=== PATIENT | female | born 1965 | race Caucasian/White ===

== ENCOUNTER 2016-05-01 10:08 | Inpatient (IN) | payer OTHER ==
[2016-05-01 10:22] VITALS: BMI 37.4
--- NOTE | 2016-05-01 10:26 | PDOC ---
History of Present Illness - General History Source: Patient Exam Limitations: No Limitations - History of Present Illness Initial Comments: 05/01/16 10:47 Chief complaint: Hypertension Patient 50-year-old female with a history of hypertension and 2 CVAs with residual speech issue who states that she went for a stress test today because she's been having chest pain, shortness of breath and dizziness on and off. She said this chest pain was worse last night. She went for the stress test today and while they were doing the pictures, she became dizzy and got tightness to her chest.. No shortness of breath today. Patient was found to be hypertensive, given lisinipril 30 mg by mouth there and was sent to the ER for further evaluation. No headache, nausea or vomiting GENERAL: The patient is awake, alert, and fully oriented, in no acute distress. HEAD: Normal with no signs of trauma. EYES: Pupils equal, round and reactive to light, sclera anicteric, conjunctiva clear. ENT: pharynx: no erythema, no exudate, uvula midline NECK: supple CHEST: clear, nontender, rr ABD: soft, nontender EXTREMITIES: Normal range of motion, no edema. NEUROLOGICAL: Normal speech, normal gait. SKIN: Warm, Dry <Radha Dexter - Last Filed: 05/01/16 14:57> <Jose Gurrola - Last Filed: 05/06/16 09:27> - General Chief Complaint: Blood Pressure Problem Stated Complaint: Blood Pressure Problem Time Seen by Provider: 05/01/16 10:19 Past History - Past Medical History HTN: Yes Hypercholesterolemia: Yes Other medical history: CHRONIC BACK PAIN. - Psycho/Social/Smoking Cessation Hx Anxiety: No Suicidal Ideation: No Smoking History: Never smoked Hx Alcohol Use: No Drug/Substance Use Hx: No Substance Use Type: None <Radha Dexter - Last Filed: 05/01/16 14:57> <Jose Gurrola - Last Filed: 05/06/16 09:27> - Past Medical History Allergies/Adverse Reactions: Allergies Allergy/AdvReac Type Severity Reaction Status Date / Time No Known Allergies Allergy Verified 05/01/16 10:10 Home Medications: Ambulatory Orders Baclofen 10 mg PO BID 05/01/16 Cholecalciferol (Vitamin D3) [Vitamin D3 -] 1,000 unit PO DAILY 05/01/16 Lisinopril [Zestril] 30 mg PO DAILY 05/01/16 Meloxicam [Mobic] 15 mg PO DAILY 05/01/16 Naproxen [Naprosyn -] 500 mg PO BID 05/01/16 Simvastatin 40 mg PO DAILY 05/01/16 *Physical Exam - Vital Signs Last Vital Signs Temp Pulse Resp BP Pulse Ox 97.4 F L 73 18 168/132 98 05/01/16 10:12 05/01/16 10:12 05/01/16 10:12 05/01/16 10:21 05/01/16 10:12 <Radha Dexter - Last Filed: 05/01/16 14:57> - Vital Signs Last Vital Signs Temp Pulse Resp BP Pulse Ox 97 F L 68 20 145/83 97 05/06/16 04:41 05/06/16 05:42 05/06/16 08:21 05/06/16 05:42 05/06/16 08:21 <Jose Gurrola - Last Filed: 05/06/16 09:27> Heart Score/ECG Review - History History: Moderately suspicious - Age Age: 45-65 - Risk Factors Risk Factors Heart Score: Yes Hx Hypertension, Yes Hx Obesity - ECG Intrepretation Rhythm: Regular Rhythm Comment:: Normal sinus rhythm at 74 Left ventricular hypertrophy, T-wave abnormalities 05/01/16 11:00 No old EKG available <Radha Dexter - Last Filed: 05/01/16 14:57> ED Treatment Course - LABORATORY CBC & Chemistry Diagram: 05/01/16 11:15 05/01/16 11:15 <Radha Dexter - Last Filed: 05/01/16 14:57> - LABORATORY CBC & Chemistry Diagram: 05/06/16 05:35 05/06/16 05:35 - ADDITIONAL ORDERS Additional order review: 05/01/16 11:15 RBC 5.26 H MCV 77.7 L MCHC 31.7 L RDW 15.0 MPV 7.6 Neutrophils % 52.8 Lymphocytes % 34.9 Monocytes % 8.2 Eosinophils % 2.8 Basophils % 1.3 - Medications Given in the ED: ED Medications Discontinued Medications Generic Name Dose Route Start Last Admin Trade Name Priyank PRN Reason Stop Dose Admin Acetaminophen 650 mg 05/01/16 11:51 05/01/16 14:05 Tylenol - PO 650 mg Q6H PRN Administration FEVER OR PAIN Acetaminophen 650 mg 05/02/16 00:45 05/02/16 00:57 Tylenol - PO 05/02/16 00:46 650 mg ONCE ONE Administration Acetaminophen/Butalbital/Caffeine 1 tablet 05/02/16 20:32 05/05/16 22:12 Fioricet - PO 1 tablet Q6H PRN Administration HEADACHE Aspirin 162 mg 05/01/16 12:14 05/01/16 12:28 Asa - PO 05/01/16 12:15 162 mg ONCE ONE Administration Aspirin 81 mg 05/02/16 10:00 05/05/16 09:38 Asa - PO 81 mg DAILY MODE Administration Atorvastatin Calcium 20 mg 05/02/16 10:00 05/05/16 09:39 Lipitor - PO 20 mg DAILY MODE Administration Baclofen 10 mg 05/01/16 22:00 05/05/16 22:09 Lioresal - PO 10 mg BID MODE Administration Carvedilol 6.25 mg 05/01/16 15:30 05/03/16 21:51 Coreg - PO 6.25 mg BID MODE Administration Carvedilol 6.25 mg 05/03/16 06:08 05/03/16 07:03 Coreg - PO 05/03/16 06:09 Not Given ONCE ONE Carvedilol 12.5 mg 05/04/16 09:38 05/05/16 09:39 Coreg - PO 12.5 mg BID MODE Administration Carvedilol 25 mg 05/05/16 22:00 05/05/16 22:09 Coreg - PO 25 mg BID MODE Administration Cephalexin HCl 500 mg 05/02/16 18:00 05/04/16 11:53 Keflex - PO 500 mg Q6HPO MODE Administration Cholecalciferol 1,000 unit 05/02/16 10:00 05/04/16 09:44 Vitamin D3 - PO 1,000 unit DAILY MODE Administration Cholecalciferol 1,000 unit 05/05/16 10:00 05/05/16 09:39 Vitamin D3 - PO 1,000 unit DAILY MODE Administration Ezetimibe 10 mg 05/04/16 10:00 05/05/16 09:39 Zetia - PO 10 mg DAILY MODE Administration Enoxaparin Sodium 40 mg 05/02/16 10:00 05/04/16 09:42 Lovenox - SQ 40 mg DAILY MODE Administration Furosemide 20 mg 05/01/16 13:16 05/01/16 14:06 Lasix Injection - IVPUSH 05/01/16 13:17 20 mg ONCE ONE Administration Furosemide 40 mg 05/02/16 08:00 05/02/16 08:42 Lasix Injection - IVPB 05/02/16 08:01 40 mg ONCE ONE Administration Heparin Sodium (Porcine) 5,000 unit 05/05/16 10:00 05/05/16 22:09 Heparin - SQ 5,000 unit BID MODE Administration Hydralazine HCl 10 mg 05/01/16 14:15 05/01/16 14:20 Apresoline Injection - IVPUSH 05/01/16 14:16 10 mg ONCE ONE Administration Hydrochlorothiazide 25 mg 05/01/16 14:00 05/01/16 14:20 Hctz - PO 25 mg DAILY MODE Administration Hydrochlorothiazide 25 mg 05/02/16 10:00 05/04/16 09:42 Hctz - PO 25 mg DAILY MODE Administration Sodium Chloride 500 mls @ 500 mls/hr 05/05/16 08:45 05/05/16 09:37 Normal Saline - IV 05/05/16 09:44 500 mls/hr ASDIR STA Administration Oxycodone HCl 10 mg 05/02/16 00:45 05/02/16 00:56 Roxicodone - PO 05/02/16 00:46 10 mg ONCE ONE Administration Oxycodone HCl 5 mg 05/03/16 14:17 05/03/16 17:22 Roxicodone - PO 05/03/16 14:18 Not Given ONCE ONE Oxycodone/Acetaminophen 2 combo 05/02/16 00:30 05/02/16 01:58 Percocet 5/325 - PO 05/02/16 00:31 Not Given ONCE ONE Polyethylene Glycol 17 gm 05/04/16 17:36 05/04/16 18:52 Miralax (For Daily Use) - PO 05/04/16 17:37 17 gm ONCE ONE Administration Spironolactone 25 mg 05/01/16 15:30 05/05/16 09:38 Aldactone - PO Not Given DAILY MODE Spironolactone 50 mg 05/05/16 09:48 05/05/16 09:57 Aldactone - PO 50 mg DAILY MODE Administration Valsartan 160 mg 05/02/16 10:00 05/05/16 09:39 Diovan - PO 160 mg DAILY MODE Administration <Jose Gurrola - Last Filed: 05/06/16 09:27> Medical Decision Making - Medical Decision Making 11:30 Discussed with Erik Ordonez NP, hospitalist. labs sent, pending, she will follow. no chest pain now, bp improved <Radha Dextre - Last Filed: 05/01/16 14:57> - Medical Decision Making 05/06/16 09:27 The patient was seen and evaluated in conjunction with ALEJANDRA Dexter under my direct supervision, ancillary studies were reviewed. I agree with the plan as outlined by ALEJANDRA Dexter . <Jose Gurrola - Last Filed: 05/06/16 09:27> *DC/Admit/Observation/Transfer - Discharge Dispostion Admit: Yes <Radha Dexter - Last Filed: 05/01/16 14:57> <Jose Gurrola - Last Filed: 05/06/16 09:27> Diagnosis at time of Disposition: Hypertensive urgency Chest pain Qualifiers: Chest pain type: unspecified Qualified Code(s): R07.9 - Chest pain, unspecified - Discharge Dispostion Disposition: TRANSFER ACUTE CARE/OTHER HOSP Condition at time of disposition: Stable
[2016-05-01 11:35] LABS: BASOPHIL 1.3 % (0-2.0); EOSINOPHIL 2.8 % (0-4.5); MCH 24.6 pg (25.7-33.7); MCHC 31.7 g/dl (32.0-36.0); MEAN CELL VOLUME 77.7 fl (80-96); MEAN PLT VOLUME 7.6 fl (7.5-11.1); NEUTROPHILS 52.8 % (42.8-82.8); PLATELET COUNT 226 K/MM3 (134-434); WHITE BLOOD COUNT 6.3 K/mm3 (4.0-10.0)
--- NOTE | 2016-05-01 11:49 | HP ---
CHIEF COMPLAINT: PCP: Dr. Heard [employer]: HISTORY OF PRESENT ILLNESS: This is a 50 year old female with a history of HTN, HLD, CVA x 2 with mild residual dysarthria and mild left-sided weakness, and chronic low back pain who presented today as an outpatient for a stress test. During the exam, she became dizzy and developed chest tightness and shortness of breath. She was found to be hypertensive to 200/130 and was given Lisinopril 30mg po. She was transferred to the ED for further evaluation. ER course was notable for: (1) EKG: NSR at 74bpm with TWI in lateral leads; no prior available for comparison (2) CXR: Cardiomegaly (new when compared to prior study in 2007), no acute process (3) BP reduced to 162/77 with administration of Lisinopril alone (4) TNI 0.23 (50 BNP 1779 Recent Travel: None Social History: Lives with daughter, on disability s/p CVA Smoking: Never smoker Alcohol: None Drugs: None Family History: No known family history of CAD/early Allergies No Known Allergies Allergy (Verified 05/01/16 10:10) HOME MEDICATIONS: Home Medications Medication Instructions Recorded Baclofen 10 mg PO BID 05/01/16 Cholecalciferol (Vitamin D3) 1,000 unit PO DAILY 05/01/16 [Vitamin D3 -] Lisinopril [Zestril] 30 mg PO DAILY 05/01/16 Meloxicam [Mobic] 15 mg PO DAILY 05/01/16 Naproxen [Naprosyn -] 500 mg PO BID 05/01/16 Simvastatin 40 mg PO DAILY 05/01/16 REVIEW OF SYSTEMS CONSTITUTIONAL: Absent: fever, chills, diaphoresis, generalized weakness, malaise, loss of appetite, weight change HEENT: Absent: rhinorrhea, nasal congestion, throat pain, throat swelling, difficulty swallowing, mouth swelling, ear pain, eye pain, visual changes CARDIOVASCULAR: Chest pain/pressure, lightheadedness, + PND, 2 pillow orthopnea. Absent: lower extremity edema RESPIRATORY: Shortness of breath. Absent: cough, dyspnea with exertion, orthopnea, wheezing, stridor, hemoptysis GASTROINTESTINAL: Absent: abdominal pain, abdominal distension, nausea, vomiting, diarrhea, constipation, melena, hematochezia GENITOURINARY: Absent: dysuria, frequency, urgency, hesitancy, hematuria, flank pain, genital pain MUSCULOSKELETAL: Absent: myalgia, arthralgia, joint swelling, back pain, neck pain SKIN: Absent: rash, itching, pallor HEMATOLOGIC/IMMUNOLOGIC: Absent: easy bleeding, easy bruising, lymphadenopathy, frequent infections ENDOCRINE: Absent: unexplained weight gain, unexplained weight loss, heat intolerance, cold intolerance NEUROLOGIC: Absent: headache, focal weakness or paresthesias, dizziness, unsteady gait, seizure, mental status changes, bladder or bowel incontinence PSYCHIATRIC: Absent: anxiety, depression, suicidal or homicidal ideation, hallucinations. PHYSICAL EXAMINATION Vital Signs - 24 hr 05/01/16 05/01/16 05/01/16 10:12 10:21 10:33 Temperature 97.4 F L Pulse Rate 73 73 Pulse Rate [ Apical] Respiratory 18 Rate Blood Pressure 182/109 Blood Pressure 168/132 [Left Arm] Blood Pressure [Right Arm] O2 Sat by Pulse 98 98 Oximetry (%) 05/01/16 11:22 Temperature Pulse Rate Pulse Rate [ 70 Apical] Respiratory 18 Rate Blood Pressure Blood Pressure 162/77 [Left Arm] Blood Pressure 164/96 [Right Arm] O2 Sat by Pulse 98 Oximetry (%) GENERAL: Awake, alert, and fully oriented, in no acute distress. EYES: Pupils equal, round and reactive to light, extraocular movements intact, sclera anicteric, conjunctiva clear. No lid lag. EARS, NOSE, THROAT: Ears normal, nares patent, oropharynx clear without exudates. Moist mucous membranes. NECK: Normal range of motion, supple without lymphadenopathy, JVD, or masses. LUNGS: Breath sounds equal, clear to auscultation bilaterally. No wheezes, and no crackles. No accessory muscle use. HEART: Regular rate and rhythm, normal S1 and S2 without murmur, rub or gallop. ABDOMEN: Soft, obese, not distended, normoactive bowel sounds, no guarding, no rebound, no masses. No hepatomegaly or splenomegaly. MUSCULOSKELETAL: Normal range of motion at all joints. No bony deformities or tenderness. No CVA tenderness. UPPER EXTREMITIES: 2+ pulses, warm, well-perfused. No cyanosis. No clubbing. Cap refill <2 seconds. No peripheral edema. LOWER EXTREMITIES: 2+ pulses, warm, well-perfused. No calf tenderness. No peripheral edema. NEUROLOGICAL: Cranial nerves II-XII intact. Normal speech. Normal gait. PSYCHIATRIC: Cooperative. Good eye contact. Appropriate mood and affect. SKIN: Warm, dry, normal turgor, no rashes or lesions noted. Laboratory Results - last 24 hr 05/01/16 11:15 WBC 6.3 RBC 5.26 H Hgb 12.9 Hct 40.8 MCV 77.7 L MCHC 31.7 L RDW 15.0 Plt Count 226 MPV 7.6 Neutrophils % 52.8 Lymphocytes % 34.9 Monocytes % 8.2 Eosinophils % 2.8 Basophils % 1.3 ASSESSMENT/PLAN: 50 year old female with chest pain, elevated troponin, and severe HTN consistent with hypertensive emergency. Problem List - Problem (1) Chest pain Assessment/Plan: -Monitor on telemetry -Serial troponins to TOY -ASA 162mg now and 81mg daily -Echocardiogram given PND/orthopnea and elevated BNP -Lasix 20mg IVP x 1 -Cardiology consultation Code(s): R07.9 - CHEST PAIN, UNSPECIFIED Qualifiers: Chest pain type: unspecified Qualified Code(s): R07.9 - Chest pain, unspecified (2) Hypertensive emergency Assessment/Plan: -MAP has decreased from 153 to 105 (by approximately 1/3) with administration of home medications -Add HCTZ 25mg po daily -Monitor and avoid further rapid decrease for now Code(s): I10 - ESSENTIAL (PRIMARY) HYPERTENSION (3) Hyperlipidemia Assessment/Plan: -Continue Simvastatin Code(s): E78.5 - HYPERLIPIDEMIA, UNSPECIFIED (4) DVT prophylaxis Assessment/Plan: -Lovenox 40mg sq daily -Ambulation Code(s): [id number] - Visit type - Emergency Visit Emergency Visit: Yes ED Registration Date: 05/01/16 Care time: The patient presented to the Emergency Department on the above date and was hospitalized for further evaluation of their emergent condition. - New Patient This patient is new to me today: Yes Date on this admission: 05/01/16 - Critical Care Critical Care patient: No
[2016-05-01 11:51] LABS: ALBUMIN 3.6 g/dl (3.4-5.0); ALK PHOS 70 U/L (45-117); ANION GAP 9 (8-16); BILIRUBIN,TOTAL 0.2 mg/dL (0.2-1.0); CO2 28 mmol/L (21-32); CREATININE 0.9 mg/dL (0.55-1.02); GLUCOSE,RANDOM 119 mg/dL (74-106); SGOT/AST 20 U/L (15-37); SGPT/ALT 23 U/L (12-78); TOT PROT 7.2 g/dl (6.4-8.2)
[2016-05-01] MEDS ORDERED: ONDANSETRON 4 MG/2 ML VIAL IVPB PRN (11:51)
[2016-05-01] MEDS ORDERED: ACETAMINOPHEN 325 MG TABLET (FP) PO PRN (11:51)
[2016-05-01] MEDS ORDERED: ASPIRIN 81 MG CHEWABLE TABLETS PO ONE (12:14)
[2016-05-01] MEDS ORDERED: ASPIRIN 81 MG CHEWABLE TABLETS ONE (12:26)
[2016-05-01 12:28] LABS: TROPONIN I 0.23 ng/ml (0.00-0.05)
[2016-05-01] MEDS ORDERED: FUROSEMIDE 40 MG/4 ML INJECTABLE VIAL IVPUSH ONE (13:16)
[2016-05-01 13:33] LABS: TROPONIN I 0.37 ng/ml (0.00-0.05)
[2016-05-01] MEDS ORDERED: HYDROCHLOROTHIAZIDE 25 MG TABLET (FP) PO SCH (14:00)
[2016-05-01] MEDS ORDERED: hydrALAZINE HCL 20 MG/ML VIAL ONE (14:03)
[2016-05-01] MEDS ORDERED: hydrALAZINE HCL 20 MG/ML VIAL IVPUSH ONE (14:15)
--- NOTE | 2016-05-01 14:34 | CON.CARD ---
Consult Consult Specialty:: Cardiology Referred by:: Hospitalist Medicine Reason for Consultation:: Chest pain, dyspnea - History of Present Illness Chief Complaint: Chest pain, dyspnea History of Present Illness: 50 year old female with a history of HTN, HLD, CVA x 2 with mild residual dysarthria and mild left-sided weakness, chronic low back and left knee pain presented today as an outpatient for a stress test. During the exam, she became dizzy and developed chest tightness and shortness of breath. She was found to be hypertensive to 200/130 and was given Lisinopril 30mg po and transferred to the ED for further evaluation. She reports dyspnea on exertion and orthopnea over last 2 weeks, denies true syncope, palpitations, PND or LE edema. Recent Travel: None Social History: Lives with daughter, on disability s/p CVA Smoking: Never smoker Alcohol: None Drugs: None Family History: No known family history of CAD/early Allergies No Known Allergies Allergy (Verified 05/01/16 10:10) PMD: [place] - History Source History Provided By: Patient Limitations to Obtaining History: No Limitations - Alcohol/Substance Use Hx Alcohol Use: No - Smoking History Smoking history: Never smoked Home Medications - Allergies Allergies/Adverse Reactions: Allergies Allergy/AdvReac Type Severity Reaction Status Date / Time No Known Allergies Allergy Verified 05/01/16 10:10 - Home Medications Home Medications: Ambulatory Orders Baclofen 10 mg PO BID 05/01/16 Cholecalciferol (Vitamin D3) [Vitamin D3 -] 1,000 unit PO DAILY 05/01/16 Lisinopril [Zestril] 30 mg PO DAILY 05/01/16 Meloxicam [Mobic] 15 mg PO DAILY 05/01/16 Naproxen [Naprosyn -] 500 mg PO BID 05/01/16 Simvastatin 40 mg PO DAILY 05/01/16 Vital Signs: Vital Signs Temperature 98.2 F 05/01/16 13:58 Pulse Rate 78 05/01/16 13:58 Respiratory Rate 14 05/01/16 13:58 Blood Pressure 190/128 05/01/16 13:58 O2 Sat by Pulse Oximetry (%) 99 05/01/16 12:28 Constitutional: Yes: No Distress, Calm Neck: Yes: Supple Respiratory: Yes: Regular, Diminished Gastrointestinal: Yes: Normal Bowel Sounds, Soft, Abdomen, Obese Cardiovascular: Yes: Regular Rate and Rhythm JVD: No Carotid Bruit: No Heart Sounds: Yes: S1, S2 Murmur: Yes: Systolic Murmur, Grade 1 Edema: Yes Edema: LLE: Trace, RLE: Trace - Other Data Labs, Other Data: Troponin, BNP 05/01/16 12:58 Troponin I 0.37 H Troponin, BNP 05/01/16 12:58 Troponin I 0.37 H NSR at 74 bpm LVH with repol abnl; no prior available for comparison Imaging - Results Chest X-ray: Report Reviewed (Cardiomegaly (new when compared to prior study in 2007), no acute process) Problem List - Problems (1) Chest pain Code(s): R07.9 - CHEST PAIN, UNSPECIFIED Qualifiers: Chest pain type: unspecified Qualified Code(s): R07.9 - Chest pain, unspecified (2) Hyperlipidemia Code(s): E78.5 - HYPERLIPIDEMIA, UNSPECIFIED Qualifiers: Hyperlipidemia type: pure hypercholesterolemia Qualified Code(s): E78.0 - Pure hypercholesterolemia (3) Hypertensive urgency Code(s): I10 - ESSENTIAL (PRIMARY) HYPERTENSION (4) Acute on chronic diastolic heart failure Code(s): I50.33 - ACUTE ON CHRONIC DIASTOLIC (CONGESTIVE) HEART FAILURE (5) Subendocardial ischemia Code(s): I24.8 - OTHER FORMS OF ACUTE ISCHEMIC HEART DISEASE (6) Hypertensive cardiomyopathy Code(s): I11.9 - HYPERTENSIVE HEART DISEASE WITHOUT HEART FAILURE I42.9 - CARDIOMYOPATHY, UNSPECIFIED Qualifiers: Heart failure presence: with heart failure Qualified Code(s): I11.0 - Hypertensive heart disease with heart failure Assessment/Plan 1. Acute on chronic diastolic failure with subendocardial ischemia in context of 2. Hypertensive urgency, NSAID use 3. Hyperlipidemia P:1. Trend troponins document peak 2. F/u echocardiogram to assess LV and valve fxn 3. IV diuresis with monitor diuretic response, renal fxn and electrolytes 4. Change lisinoprol to Diovan 160 qd, add carvedilol 6.25 qd with uptitration as tolerated, continue HCTZ 25 qd, d/c Mobic if possible 5. Stress imaging (Persantine) once euvolemic and BP controlled 6. Thank you for consultative opportunity
[2016-05-01] MEDS: CARVEDILOL 6.25 MG TABLET (FP) PO SCH ×2 (17:20→22:07)
[2016-05-01] MEDS: SPIRONOLACTONE 25 MG TABLET (FP) PO SCH (17:20)
[2016-05-01 18:34] LABS: TROPONIN I 0.44 ng/ml (0.00-0.05)
[2016-05-01] MEDS ORDERED: HYDROCHLOROTHIAZIDE 25 MG TABLET (FP) PO STA (18:48)
[2016-05-01] MEDS: BACLOFEN 10 MG TABLET (FP) PO SCH (22:07)
[2016-05-01 23:05] LABS: TROPONIN I 0.41 ng/ml (0.00-0.05)
[2016-05-02] MEDS ORDERED: OXYCODONE/APAP 5/325MG COMBO TABLET PO ONE (00:30)
[2016-05-02] MEDS ORDERED: ACETAMINOPHEN 325 MG TABLET (FP) PO ONE (00:45)
[2016-05-02] MEDS ORDERED: oxyCODONE HCL 5 MG TABLET PO ONE (00:45)
[2016-05-02 05:49] LABS: BASOPHIL 1.4 % (0-2.0); EOSINOPHIL 2.6 % (0-4.5); MCHC 32.7 g/dl (32.0-36.0); MEAN CELL VOLUME 76.5 fl (80-96); MEAN PLT VOLUME 7.1 fl (7.5-11.1); NEUTROPHILS 53.9 % (42.8-82.8); PLATELET COUNT 258 K/MM3 (134-434); WHITE BLOOD COUNT 6.3 K/mm3 (4.0-10.0)
[2016-05-02 06:11] LABS: ALBUMIN 3.7 g/dl (3.4-5.0); MAGNESIUM 2.1 mg/dL (1.8-2.4)
[2016-05-02 06:18] LABS: BILIRUBIN,TOTAL 0.3 mg/dL (0.2-1.0); CREATININE 1.1 mg/dL (0.55-1.02); THYROID STIMULATING HORMONE 1.93 uIU/ml (0.358-3.74); TOT PROT 7.5 g/dl (6.4-8.2)
--- NOTE | 2016-05-02 07:45 | PN ---
Physical Exam: SUBJECTIVE: Feels better, no chest pain overnight. No dyspnea at rest, feeling better after one dose of Lasix. OBJECTIVE: Hospital day #2 for this 50 year old female admitted 05/01 with chest pain. Troponin peaked at 0.44, now downtrending. Vital Signs Period Temp Pulse Resp BP Sys/Morse Pulse Ox Last 24 Hr 97.5 F-98.2 F 70-83 14-20 123-190/75-128 96-99 GENERAL: The patient is awake, alert, and fully oriented, in no acute distress. HEAD: Normal with no signs of trauma. EYES: PERRL, extraocular movements intact, sclera anicteric, conjunctiva clear. No ptosis. ENT: Ears normal, nares patent, oropharynx clear without exudates, moist mucous membranes. NECK: Trachea midline, full range of motion, supple. LUNGS: Breath sounds equal, clear to auscultation bilaterally, no wheezes, no crackles, no accessory muscle use. HEART: Regular rate and rhythm, S1, S2 without murmur, rub or gallop. ABDOMEN: Soft, nontender, nondistended, normoactive bowel sounds, no guarding, no rebound, no hepatosplenomegaly, no masses. EXTREMITIES: 2+ pulses, warm, well-perfused, no edema. NEUROLOGICAL: Cranial nerves II through XII grossly intact. Normal speech, gait not observed. PSYCH: Normal mood, normal affect. SKIN: Warm, dry, normal turgor, no rashes or lesions noted Laboratory Results - last 24 hr 05/01/16 05/01/16 05/01/16 12:58 16:40 22:00 WBC RBC Hgb Hct MCV MCHC RDW Plt Count MPV Neutrophils % Lymphocytes % Monocytes % Eosinophils % Basophils % Sodium Potassium Chloride Carbon Dioxide Anion Gap BUN Creatinine Creat Clearance w eGFR Random Glucose Calcium Magnesium Total Bilirubin AST ALT Alkaline Phosphatase Creatine Kinase 115 117 105 Troponin I 0.37 H 0.44 H 0.41 H Total Protein Albumin Triglycerides Cholesterol Total LDL Cholesterol HDL Cholesterol TSH 05/02/16 05/02/16 05/02/16 05:00 05:37 05:37 WBC 6.3 RBC 5.37 H Hgb 13.4 Hct 41.1 MCV 76.5 L MCHC 32.7 RDW 15.0 Plt Count 258 MPV 7.1 L Neutrophils % 53.9 Lymphocytes % 34.0 Monocytes % 8.1 Eosinophils % 2.6 Basophils % 1.4 Sodium 140 Potassium 3.9 Chloride 101 Carbon Dioxide 31 Anion Gap 8 BUN 21 H D Creatinine 1.1 H D Creat Clearance w eGFR 52.16 Random Glucose 109 H Calcium 9.0 Magnesium 2.1 Total Bilirubin 0.3 D AST 22 ALT 21 Alkaline Phosphatase 72 Creatine Kinase Troponin I Cancelled Total Protein 7.5 Albumin 3.7 Triglycerides 256 H Cholesterol 271 H Total LDL Cholesterol 186 H HDL Cholesterol 50 TSH 1.93 Active Medications Generic Name Dose Route Start Last Admin Trade Name Freq PRN Reason Stop Dose Admin Acetaminophen 650 mg 05/01/16 11:51 05/01/16 14:05 Tylenol - PO 650 mg Q6H PRN Administration FEVER OR PAIN Aspirin 81 mg 05/02/16 10:00 Asa - PO DAILY [facility] Atorvastatin Calcium 20 mg 05/02/16 10:00 Lipitor - PO DAILY [facility] Baclofen 10 mg 05/01/16 22:00 05/01/16 22:07 Lioresal - PO 10 mg BID [facility] Administration Carvedilol 6.25 mg 05/01/16 15:30 05/01/16 22:07 Coreg - PO 6.25 mg BID [facility] Administration Cholecalciferol 1,000 unit 05/02/16 10:00 Vitamin D3 - PO DAILY [facility] Enoxaparin Sodium 40 mg 05/02/16 10:00 Lovenox - SQ DAILY [facility] Furosemide 40 mg 05/02/16 08:00 Lasix Injection - IVPB 05/02/16 08:01 ONCE ONE Hydrochlorothiazide 25 mg 05/02/16 10:00 Hctz - PO DAILY [facility] Ondansetron HCl 4 mg 05/01/16 11:51 Zofran Injection IVPB Q6H PRN NAUSEA Spironolactone 25 mg 05/01/16 15:30 05/01/16 17:20 Aldactone - PO 25 mg DAILY [facility] Administration Valsartan 160 mg 05/02/16 10:00 Diovan - PO DAILY [facility] ASSESSMENT/PLAN: 50 year old female with chest pain, hypertensive emergency, and volume overload. Problem List - Problems (1) Chest pain Assessment/Plan: -Continue to monitor on telemetry -Continue ASA -05/01/16 Echo: Mild cLVH, severely decreased LV systolic dysfunction, normal RV size and fxn, mod MR, mild TR -[facility] on Wednesday for right and left heart cath Code(s): R07.9 - CHEST PAIN, UNSPECIFIED Qualifiers: Chest pain type: unspecified Qualified Code(s): R07.9 - Chest pain, unspecified (2) Hypertensive emergency Assessment/Plan: -Currently normotensive -Regimen adjusted yesterday: Diovan 160 daily, Carvedilol 6.25 daily, continue HCTZ 25 qd Code(s): I10 - ESSENTIAL (PRIMARY) HYPERTENSION (3) Hyperlipidemia Assessment/Plan: -Continue Simvastatin Code(s): E78.5 - HYPERLIPIDEMIA, UNSPECIFIED Qualifiers: Hyperlipidemia type: pure hypercholesterolemia Qualified Code(s): E78.0 - Pure hypercholesterolemia (4) Urinary tract infection Assessment/Plan: -Send culture -Start Keflex 500mg po q6h Code(s): N39.0 - URINARY TRACT INFECTION, SITE NOT SPECIFIED (5) DVT prophylaxis Assessment/Plan: -Lovenox 40mg sq daily -Ambulation Code(s): [id number] - Visit type - Emergency Visit Emergency Visit: Yes ED Registration Date: 05/01/16 Care time: The patient presented to the Emergency Department on the above date and was hospitalized for further evaluation of their emergent condition. - New Patient This patient is new to me today: No - Critical Care Critical Care patient: No - Discharge Referral Referred to [facility] No
[2016-05-02] MEDS ORDERED: FUROSEMIDE 40 MG/4 ML INJECTABLE VIAL IVPB ONE (08:00)
[2016-05-02 08:32] LABS: TROPONIN I 0.36 ng/ml (0.00-0.05)
[2016-05-02] MEDS ORDERED: PATIENT'S OWN MEDICATION (NON-FORMULARY) (Meloxicam [Mobic] 15 MG) PO SCH (10:00)
[2016-05-02] MEDS ORDERED: PATIENT'S OWN MEDICATION (NON-FORMULARY) (Lisinopril [Zestril] 30 MG) PO SCH (10:00)
[2016-05-02] MEDS ORDERED: LISINOPRIL 20 MG, LISINOPRIL 10 MG PO SCH (10:00)
[2016-05-02] MEDS ORDERED: PT OWN MED DRAWER 7, Y5N ONE (10:12)
[2016-05-02] MEDS: VALSARTAN 160 MG TABLET (UD) PO SCH (10:14)
[2016-05-02] MEDS: HYDROCHLOROTHIAZIDE 25 MG TABLET (FP) PO SCH (10:14)
[2016-05-02] MEDS: CARVEDILOL 6.25 MG TABLET (FP) PO SCH ×2 (10:14→22:32)
[2016-05-02] MEDS: SPIRONOLACTONE 25 MG TABLET (FP) PO SCH (10:14)
[2016-05-02] MEDS: ENOXAPARIN NA (PORCINE) 40 MG/0.4 ML DISP.SYRIN SQ SCH (10:14)
[2016-05-02] MEDS: ATORVASTATIN CA 20 MG TABLET (FP) PO SCH (10:14)
[2016-05-02] MEDS: ASPIRIN 81 MG CHEWABLE TABLETS PO SCH (10:14)
[2016-05-02] MEDS: BACLOFEN 10 MG TABLET (FP) PO SCH ×2 (10:14→22:32)
[2016-05-02] MEDS: CHOLECALCIFEROL (VITAMIN D3) 400 UNIT TABLET (FP) PO SCH (10:15)
[2016-05-02 13:31] LABS: URINE APPEARANCE CLEAR; URINE BILIRUBIN NEGATIVE (NEGATIVE); URINE BLOOD NEGATIVE (NEGATIVE); URINE COLOR LTYELLOW; URINE GLUCOSE (UA) NEGATIVE (NEGATIVE); URINE KETONE NEGATIVE (NEGATIVE); URINE NITRITE NEGATIVE (NEGATIVE); URINE PROTEIN NEGATIVE (NEGATIVE); URINE UROBILINOGEN NEGATIVE E.U./dl (0.2-1.0)
--- NOTE | 2016-05-02 13:43 | EKG ---
Test Reason : Blood Pressure : / mmHG Vent. Rate : 074 BPM Atrial Rate : 074 BPM P-R Int : 166 ms QRS Dur : 094 ms QT Int : 416 ms P-R-T Axes : 037 -27 092 degrees QTc Int : 461 ms NORMAL SINUS RHYTHM POSSIBLE LEFT ATRIAL ENLARGEMENT LEFT VENTRICULAR HYPERTROPHY ANTEROSEPTAL INFARCT , AGE UNDETERMINED T WAVE ABNORMALITY, CONSIDER LATERAL ISCHEMIA ABNORMAL ECG WHEN COMPARED WITH ECG OF 16-DEC-2007 02:32, T WAVE VARIATION Confirmed by BETTY ROSA MD ([id number]) on 05/02/2016 1:42:52 PM Referred By: Confirmed By:BETTY ROSA MD
[2016-05-02 13:44] LABS: URINE LEUK ESTERASE 2+ (NEGATIVE)
[2016-05-02 13:45] LABS: URINE BACTERIA FEW /hpf (NONE SEEN); URINE HYALINE CAST 14 /lpf; URINE MUCUS RARE; URINE RBC 1 /hpf (0-3); URINE WBC 21 /hpf (3-5)
--- NOTE | 2016-05-02 14:17 | PN ---
Progress Note, Physician Chief Complaint: Events noted Denies chest pain, SOB or palpitations History of Present Illness: Patient was seen and examined. Awake and alert. Chart was reviewed Discussed indication for cardiac catheterization/coronary angiography - Current Medication List Current Medications: Active Medications Acetaminophen (Tylenol -) 650 mg PO Q6H PRN PRN Reason: FEVER OR PAIN Last Admin: 05/01/16 14:05 Dose: 650 mg Aspirin (Asa -) 81 mg PO DAILY [facility] Last Admin: 05/02/16 10:14 Dose: 81 mg Atorvastatin Calcium (Lipitor -) 20 mg PO DAILY [facility] Last Admin: 05/02/16 10:14 Dose: 20 mg Baclofen (Lioresal -) 10 mg PO BID [facility] Last Admin: 05/02/16 10:14 Dose: 10 mg Carvedilol (Coreg -) 6.25 mg PO BID [facility] Last Admin: 05/02/16 10:14 Dose: 6.25 mg Cephalexin HCl (Keflex -) 500 mg PO Q6HPO [facility] Cholecalciferol (Vitamin D3 -) 1,000 unit PO DAILY [facility] Last Admin: 05/02/16 10:15 Dose: 1,000 unit Enoxaparin Sodium (Lovenox -) 40 mg SQ DAILY [facility] Last Admin: 05/02/16 10:14 Dose: 40 mg Hydrochlorothiazide (Hctz -) 25 mg PO DAILY [facility] Last Admin: 05/02/16 10:14 Dose: 25 mg Ondansetron HCl (Zofran Injection) 4 mg IVPB Q6H PRN PRN Reason: NAUSEA Spironolactone (Aldactone -) 25 mg PO DAILY [facility] Last Admin: 05/02/16 10:14 Dose: 25 mg Valsartan (Diovan -) 160 mg PO DAILY [facility] Last Admin: 05/02/16 10:14 Dose: 160 mg - Objective Vital Signs: Vital Signs Temperature 97.5 F L 05/02/16 07:56 Pulse Rate 71 05/02/16 07:56 Respiratory Rate 20 05/02/16 07:59 Blood Pressure 140/77 05/02/16 07:56 O2 Sat by Pulse Oximetry (%) 97 05/02/16 07:59 Neck: Yes: Supple Cardiovascular: Yes: Regular Rate and Rhythm, S1, S2 Respiratory: Yes: CTA Bilaterally Gastrointestinal: Yes: Normal Bowel Sounds, Soft. No: Tenderness Edema: No Additional Findings/Remarks: - Review of Systems Constitutional: no symptoms reported Respiratory: denies: Cough, SOB, denies: Sputum Production Cardiovascular: as noted above Gastrointestinal: denies Nausea, Vomiting, Diarrhea, Constipation or Abdominal Pain Genitourinary: no symptoms reported Musculoskeletal: no symptoms reported Labs: CBC, BMP 05/02/16 05:37 05/02/16 05:37 Problem List - Problems (1) Hyperlipidemia Code(s): E78.5 - HYPERLIPIDEMIA, UNSPECIFIED Qualifiers: Hyperlipidemia type: pure hypercholesterolemia Qualified Code(s): E78.0 - Pure hypercholesterolemia (2) Hypertensive cardiomyopathy Code(s): I11.9 - HYPERTENSIVE HEART DISEASE WITHOUT HEART FAILURE I42.9 - CARDIOMYOPATHY, UNSPECIFIED Qualifiers: Heart failure presence: with heart failure Qualified Code(s): I11.0 - Hypertensive heart disease with heart failure (3) Acute on chronic diastolic heart failure Code(s): I50.33 - ACUTE ON CHRONIC DIASTOLIC (CONGESTIVE) HEART FAILURE (4) CVA (cerebral vascular accident) Code(s): I63.9 - CEREBRAL INFARCTION, UNSPECIFIED Assessment/Plan 1. Acute on chronic diastolic failure with subendocardial ischemia and dilated cardiomyopathy (severe LV systolic dysfunction) 2. Hypertension 3. Hyperlipidemia PLAN: 1. Trend troponins 2. Transthoracic echocardiography result noted. 3. Continue Diovan 160 mg QD, Carvedilol 6.25 mg BID with uptitration as tolerated, continue HCTZ 25 mg QD. Continue ASA 81 mg QD 4. Cardiac catheterization/coronary angiography Wednesday at [facility] Further plans are to follow Dwight Meyer MD
[2016-05-02] MEDS: CEPHALEXIN MONOHYDRATE 500 MG CAPSULE (UD) PO SCH (17:48)
--- NOTE | 2016-05-02 20:01 | HOSP ---
[id number] the patient is having sharp R-sided chest pain. Stat EKG, Cardiac Enzymes ordered. Arrived to bedside, patient is alert and awake reports right sided temporal headache radiating to her neck and right shoulder. See PE Ordered Firocet EKG- no change compared to prior study CE trending down Per RN, patient reports decrease head pain, CP resolved Cardiovascular: Yes: Chest Pain Physical Examination Vital Signs: Vital Signs Temperature 97.7 F 05/02/16 17:55 Pulse Rate 71 05/02/16 17:55 Respiratory Rate 18 05/02/16 17:55 Blood Pressure 158/91 05/02/16 17:55 O2 Sat by Pulse Oximetry (%) 97 05/02/16 07:59 Constitutional: Yes: Mild Distress HENT: Yes: WNL, Atraumatic, Normocephalic, Other (TN to right temporal aspect on palpation) Cardiovascular: Yes: WNL, Regular Rate and Rhythm, S1, S2, Other (CP reproducible on palpation.) Respiratory: Yes: WNL, Regular, CTA Bilaterally Gastrointestinal: Yes: Normal Bowel Sounds, Abdomen, Obese Neurological: Yes: WNL, Alert, Oriented, Cran Nerves II-XII Intact Psychiatric: Yes: WNL, Alert, Oriented Labs: CBC, BMP 05/02/16 05:37 05/02/16 05:37
[2016-05-02 21:38] LABS: TROPONIN I 0.21 ng/ml (0.00-0.05)
[2016-05-02] MEDS: ACETAMINOPHEN/CAFFEINE/BUTALBITAL 1 TAB PO PRN (22:32)
[2016-05-03] MEDS: CEPHALEXIN MONOHYDRATE 500 MG CAPSULE (UD) PO SCH ×4 (01:15→17:35)
[2016-05-03] MEDS ORDERED: CARVEDILOL 6.25 MG TABLET (FP) PO ONE (06:08)
[2016-05-03] MEDS: CARVEDILOL 6.25 MG TABLET (FP) PO SCH ×3 (06:10→21:51)
[2016-05-03 08:31] LABS: BASOPHIL 0.8 % (0-2.0); MCH 24.8 pg (25.7-33.7); MCHC 32.3 g/dl (32.0-36.0); MEAN CELL VOLUME 76.7 fl (80-96); MEAN PLT VOLUME 7.6 fl (7.5-11.1); NEUTROPHILS 52.1 % (42.8-82.8); PLATELET COUNT 271 K/MM3 (134-434); RDW 15.2 % (11.6-15.6); WHITE BLOOD COUNT 6.7 K/mm3 (4.0-10.0)
[2016-05-03] MEDS: BACLOFEN 10 MG TABLET (FP) PO SCH ×2 (09:04→21:51)
[2016-05-03] MEDS: ENOXAPARIN NA (PORCINE) 40 MG/0.4 ML DISP.SYRIN SQ SCH (09:04)
[2016-05-03] MEDS: ASPIRIN 81 MG CHEWABLE TABLETS PO SCH (09:04)
[2016-05-03] MEDS: SPIRONOLACTONE 25 MG TABLET (FP) PO SCH (09:04)
[2016-05-03] MEDS: HYDROCHLOROTHIAZIDE 25 MG TABLET (FP) PO SCH (09:04)
[2016-05-03] MEDS: VALSARTAN 160 MG TABLET (UD) PO SCH (09:04)
[2016-05-03] MEDS: ATORVASTATIN CA 20 MG TABLET (FP) PO SCH (09:10)
[2016-05-03] MEDS: CHOLECALCIFEROL (VITAMIN D3) 400 UNIT TABLET (FP) PO SCH (09:10)
[2016-05-03 09:17] LABS: CALCIUM 9.7 mg/dL (8.5-10.1); CREATININE 1.1 mg/dL (0.55-1.02)
[2016-05-03] MEDS ORDERED: oxyCODONE HCL 5 MG TABLET PO ONE (14:17)
[2016-05-03] MEDS: ACETAMINOPHEN/CAFFEINE/BUTALBITAL 1 TAB PO PRN (14:22)
--- NOTE | 2016-05-03 15:04 | PN ---
Progress Note (short form) - Note Progress Note: Subjective: The patient was seen and examined at the bedside, she is complaining of right lateral thigh pain. She denies any chest pain. Current Medications Generic Name Dose Route Start Last Admin Trade Name Freq PRN Reason Stop Dose Admin Acetaminophen/Butalbital/Caffeine 1 tablet 05/02/16 20:32 05/02/16 22:32 Fioricet - PO 1 tablet Q6H PRN Administration HEADACHE Aspirin 81 mg 05/02/16 10:00 05/03/16 09:04 Asa - PO 81 mg DAILY MODE Administration Atorvastatin Calcium 20 mg 05/02/16 10:00 05/03/16 09:10 Lipitor - PO 20 mg DAILY MODE Administration Baclofen 10 mg 05/01/16 22:00 05/03/16 09:04 Lioresal - PO 10 mg BID MODE Administration Carvedilol 6.25 mg 05/01/16 15:30 05/03/16 09:09 Coreg - PO 6.25 mg BID MODE Administration Cephalexin HCl 500 mg 05/02/16 18:00 05/03/16 12:43 Keflex - PO 500 mg Q6HPO MODE Administration Cholecalciferol 1,000 unit 05/02/16 10:00 05/03/16 09:10 Vitamin D3 - PO 1,000 unit DAILY MODE Administration Enoxaparin Sodium 40 mg 05/02/16 10:00 05/03/16 09:04 Lovenox - SQ 40 mg DAILY MODE Administration Hydrochlorothiazide 25 mg 05/02/16 10:00 05/03/16 09:04 Hctz - PO 25 mg DAILY MODE Administration Ondansetron HCl 4 mg 05/01/16 11:51 Zofran Injection IVPB Q6H PRN NAUSEA Oxycodone HCl 5 mg 05/03/16 14:17 Roxicodone - PO 05/03/16 14:18 ONCE ONE Spironolactone 25 mg 05/01/16 15:30 05/03/16 09:04 Aldactone - PO 25 mg DAILY MODE Administration Valsartan 160 mg 05/02/16 10:00 05/03/16 09:04 Diovan - PO 160 mg DAILY MODE Administration Objective: Vital Signs Period Temp Pulse Resp BP Sys/Morse Pulse Ox Last 24 Hr 97.0 F-97.8 F 68-80 18-20 138-180/91-114 98-98 Physical Exam: General: NAD, A&Ox3 Lungs: CTA bilaterally Heart: RRR, S1S2 Abd: Soft, non-tender, non-distended. Normoactive bowel sounds Ext: Warm, well-perfused. 2+ DP/PT bilaterally Neuro: CN 2-12 intact CBCD WBC 6.7 K/mm3 (4.0-10.0) 05/03/16 05:45 RBC 5.64 M/mm3 (3.60-5.2) H 05/03/16 05:45 Hgb 14.0 GM/dL (10.7-15.3) 05/03/16 05:45 Hct 43.3 % (32.4-45.2) 05/03/16 05:45 MCV 76.7 fl (80-96) L 05/03/16 05:45 MCHC 32.3 g/dl (32.0-36.0) 05/03/16 05:45 RDW 15.2 % (11.6-15.6) 05/03/16 05:45 Plt Count 271 K/MM3 (134-434) 05/03/16 05:45 MPV 7.6 fl (7.5-11.1) 05/03/16 05:45 CMP Sodium 138 mmol/L (136-145) 05/03/16 05:45 Potassium 3.7 mmol/L (3.5-5.1) 05/03/16 05:45 Chloride 99 mmol/L (98-107) 05/03/16 05:45 Carbon Dioxide 26 mmol/L (21-32) 05/03/16 05:45 Anion Gap 13 (8-16) 05/03/16 05:45 BUN 33 mg/dL (7-18) H D 05/03/16 05:45 Creatinine 1.1 mg/dL (0.55-1.02) H 05/03/16 05:45 Creat Clearance w eGFR 52.16 (>60) 05/02/16 05:37 Random Glucose 121 mg/dL (74-106) H 05/03/16 05:45 Calcium 9.7 mg/dL (8.5-10.1) 05/03/16 05:45 Total Bilirubin 0.3 mg/dL (0.2-1.0) D 05/02/16 05:37 AST 22 U/L (15-37) 05/02/16 05:37 ALT 21 U/L (12-78) 05/02/16 05:37 Alkaline Phosphatase 72 U/L (45-117) 05/02/16 05:37 Total Protein 7.5 g/dl (6.4-8.2) 05/02/16 05:37 Albumin 3.7 g/dl (3.4-5.0) 05/02/16 05:37 CARDIAC ENZYMES Creatine Kinase 98 IU/L (26-192) 05/02/16 21:00 Troponin I 0.21 ng/ml (0.00-0.05) H 05/02/16 21:00 Assessment: This is a 50 year old female with PMHx of HTN, hyperlipidemia, CVA x2 (residual dysarthria and mild left-sided weakness, chronic lower back pain who presented for a stress test and became dizzy and short of breath. Plan: 1) Cardiology: Chest pain - Acute on chronic diastolic heart failure with subendocardial ischemia and dilated cardiomyopathy - Trop trending down, peaked 0.44 - ECHO with severely reduced LVSF, mid anteroseptal wall severe hypokinesis, apical anterior wall hypokinesis, apical severe hypokinesis, mod MR - Continue Diovan - Continue Carvedilol - Continue Aldactone - Continue Hctz - Continue ASA - Transfer for cardiac cath on Wednesday - Appreciate cardiology consult HTN - Medications as above - HTN this AM Hyperlipidemia - Continue Lipitor 2) ID: UTI - Started on Keflex prior to urine culture - Continue empiric abx 3) Neuro: Hx of CVA - No active issues 4) F/E/N: - Monitor electrolytes - Sodium controlled diet 5) Prophylaxis: - OOB ambulating - Lovenox 40mg sq daily 6) Dispo: - For transfer for cardiac cath tomorrow CODE STATUS: FULL CODE Visit type - Emergency Visit Emergency Visit: Yes ED Registration Date: 05/01/16 Care time: The patient presented to the Emergency Department on the above date and was hospitalized for further evaluation of their emergent condition. - New Patient This patient is new to me today: Yes Date on this admission: 05/03/16 - Critical Care Critical Care patient: No
--- NOTE | 2016-05-03 19:17 | PN ---
Progress Note, Physician Chief Complaint: Events noted Denies chest pain, SOB or palpitations History of Present Illness: Patient was seen and examined. Awake and alert. Chart was reviewed Discussed indication for cardiac catheterization/coronary angiography and to proceed in AM tomorrow - Current Medication List Current Medications: Active Medications Acetaminophen/Butalbital/Caffeine (Fioricet -) 1 tablet PO Q6H PRN PRN Reason: HEADACHE Last Admin: 05/03/16 14:22 Dose: 1 tablet Aspirin (Asa -) 81 mg PO DAILY [facility] Last Admin: 05/03/16 09:04 Dose: 81 mg Atorvastatin Calcium (Lipitor -) 20 mg PO DAILY [facility] Last Admin: 05/03/16 09:10 Dose: 20 mg Baclofen (Lioresal -) 10 mg PO BID [facility] Last Admin: 05/03/16 09:04 Dose: 10 mg Carvedilol (Coreg -) 6.25 mg PO BID [facility] Last Admin: 05/03/16 09:09 Dose: 6.25 mg Cephalexin HCl (Keflex -) 500 mg PO Q6HPO [facility] Last Admin: 05/03/16 17:35 Dose: 500 mg Cholecalciferol (Vitamin D3 -) 1,000 unit PO DAILY [facility] Last Admin: 05/03/16 09:10 Dose: 1,000 unit Enoxaparin Sodium (Lovenox -) 40 mg SQ DAILY [facility] Last Admin: 05/03/16 09:04 Dose: 40 mg Hydrochlorothiazide (Hctz -) 25 mg PO DAILY [facility] Last Admin: 05/03/16 09:04 Dose: 25 mg Ondansetron HCl (Zofran Injection) 4 mg IVPB Q6H PRN PRN Reason: NAUSEA Spironolactone (Aldactone -) 25 mg PO DAILY [facility] Last Admin: 05/03/16 09:04 Dose: 25 mg Valsartan (Diovan -) 160 mg PO DAILY [facility] Last Admin: 05/03/16 09:04 Dose: 160 mg - Objective Vital Signs: Vital Signs Temperature 98.1 F 05/03/16 17:00 Pulse Rate 82 05/03/16 17:00 Respiratory Rate 18 05/03/16 17:00 Blood Pressure 138/92 05/03/16 17:00 O2 Sat by Pulse Oximetry (%) 98 05/03/16 07:29 Neck: Yes: Supple Cardiovascular: Yes: Regular Rate and Rhythm, S1, S2 Respiratory: Yes: Diminished Gastrointestinal: Yes: Normal Bowel Sounds, Soft. No: Tenderness Edema: No Additional Findings/Remarks: - Review of Systems Constitutional: no symptoms reported Respiratory: denies: Cough, SOB, denies: Sputum Production Cardiovascular: as noted above Gastrointestinal: denies Nausea, Vomiting, Diarrhea, Constipation or Abdominal Pain Genitourinary: no symptoms reported Musculoskeletal: no symptoms reported Labs: CBC, BMP 05/03/16 05:45 05/03/16 05:45 Problem List - Problems (1) Hyperlipidemia Code(s): E78.5 - HYPERLIPIDEMIA, UNSPECIFIED Qualifiers: Hyperlipidemia type: pure hypercholesterolemia Qualified Code(s): E78.0 - Pure hypercholesterolemia (2) Hypertensive cardiomyopathy Code(s): I11.9 - HYPERTENSIVE HEART DISEASE WITHOUT HEART FAILURE I42.9 - CARDIOMYOPATHY, UNSPECIFIED Qualifiers: Heart failure presence: with heart failure Qualified Code(s): I11.0 - Hypertensive heart disease with heart failure (3) Acute on chronic diastolic heart failure Code(s): I50.33 - ACUTE ON CHRONIC DIASTOLIC (CONGESTIVE) HEART FAILURE (4) CVA (cerebral vascular accident) Code(s): I63.9 - CEREBRAL INFARCTION, UNSPECIFIED Assessment/Plan 1. Acute on chronic diastolic failure with subendocardial ischemia and dilated cardiomyopathy (severe LV systolic dysfunction) 2. Hypertension 3. Hyperlipidemia PLAN: 1. Trend troponins (last one is 0.21) 2. Transthoracic echocardiography result noted. 3. Continue Diovan 160 mg QD, Carvedilol 6.25 mg BID with uptitration as tolerated, continue HCTZ 25 mg QD. Continue ASA 81 mg QD 4. Cardiac catheterization/coronary angiography Wednesday at [facility] Further plans are to follow Dwight Meyer MD
[2016-05-04] MEDS: ACETAMINOPHEN/CAFFEINE/BUTALBITAL 1 TAB PO PRN ×3 (00:33→23:06)
[2016-05-04] MEDS: CEPHALEXIN MONOHYDRATE 500 MG CAPSULE (UD) PO SCH ×3 (00:34→11:53)
--- NOTE | 2016-05-04 00:46 | EKG ---
Test Reason : Blood Pressure : / mmHG Vent. Rate : 074 BPM Atrial Rate : 074 BPM P-R Int : 152 ms QRS Dur : 104 ms QT Int : 438 ms P-R-T Axes : 031 -31 097 degrees QTc Int : 486 ms NORMAL SINUS RHYTHM POSSIBLE LEFT ATRIAL ENLARGEMENT LEFT AXIS DEVIATION LEFT VENTRICULAR HYPERTROPHY ANTEROSEPTAL INFARCT (CITED ON OR BEFORE 01-MAY-2016) POOR R WAVE PROGRESSION T WAVE ABNORMALITY, CONSIDER LATERAL ISCHEMIA ABNORMAL ECG WHEN COMPARED WITH ECG OF 01-MAY-2016 10:20, NO SIGNIFICANT CHANGE WAS FOUND Confirmed by BETTY ROSA MD ([id number]) on 05/04/2016 12:45:46 AM Referred By: Confirmed By:BETTY ROSA MD
[2016-05-04] MEDS ORDERED: PT OWN MED DRAWER 7, Y5N ONE (09:15)
--- NOTE | 2016-05-04 09:28 | PN ---
Progress Note, Physician History of Present Illness: Atypical right sided chest pain worse with raising arm, dyspnea resolved. PMD: [place] - Current Medication List Current Medications: Active Medications Acetaminophen/Butalbital/Caffeine (Fioricet -) 1 tablet PO Q6H PRN PRN Reason: HEADACHE Last Admin: 05/04/16 00:33 Dose: 1 tablet Aspirin (Asa -) 81 mg PO DAILY [facility] Last Admin: 05/03/16 09:04 Dose: 81 mg Atorvastatin Calcium (Lipitor -) 20 mg PO DAILY [facility] Last Admin: 05/03/16 09:10 Dose: 20 mg Baclofen (Lioresal -) 10 mg PO BID [facility] Last Admin: 05/03/16 21:51 Dose: 10 mg Carvedilol (Coreg -) 6.25 mg PO BID [facility] Last Admin: 05/03/16 21:51 Dose: 6.25 mg Cephalexin HCl (Keflex -) 500 mg PO Q6HPO [facility] Last Admin: 05/04/16 05:38 Dose: 500 mg Cholecalciferol (Vitamin D3 -) 1,000 unit PO DAILY [facility] Last Admin: 05/03/16 09:10 Dose: 1,000 unit Enoxaparin Sodium (Lovenox -) 40 mg SQ DAILY [facility] Last Admin: 05/03/16 09:04 Dose: 40 mg Hydrochlorothiazide (Hctz -) 25 mg PO DAILY [facility] Last Admin: 05/03/16 09:04 Dose: 25 mg Ondansetron HCl (Zofran Injection) 4 mg IVPB Q6H PRN PRN Reason: NAUSEA Spironolactone (Aldactone -) 25 mg PO DAILY [facility] Last Admin: 05/03/16 09:04 Dose: 25 mg Valsartan (Diovan -) 160 mg PO DAILY [facility] Last Admin: 05/03/16 09:04 Dose: 160 mg - Objective Vital Signs: Vital Signs Temperature 98.2 F 05/04/16 08:10 Pulse Rate 72 05/04/16 08:10 Respiratory Rate 14 05/04/16 08:10 Blood Pressure 146/96 05/04/16 08:10 O2 Sat by Pulse Oximetry (%) 95 05/03/16 21:00 Constitutional: Yes: No Distress, Calm Neck: Yes: Supple Cardiovascular: Yes: Regular Rate and Rhythm Respiratory: Yes: Regular, Diminished Gastrointestinal: Yes: Normal Bowel Sounds, Soft, Abdomen, Obese Edema: No Labs: CBC, BMP 05/03/16 05:45 05/03/16 05:45 Problem List - Problems (1) Chest pain Code(s): R07.9 - CHEST PAIN, UNSPECIFIED Qualifiers: Chest pain type: unspecified Qualified Code(s): R07.9 - Chest pain, unspecified (2) Hyperlipidemia Code(s): E78.5 - HYPERLIPIDEMIA, UNSPECIFIED Qualifiers: Hyperlipidemia type: pure hypercholesterolemia Qualified Code(s): E78.0 - Pure hypercholesterolemia (3) Hypertensive urgency Code(s): I10 - ESSENTIAL (PRIMARY) HYPERTENSION (4) Acute on chronic diastolic heart failure Code(s): I50.33 - ACUTE ON CHRONIC DIASTOLIC (CONGESTIVE) HEART FAILURE (5) Subendocardial ischemia Code(s): I24.8 - OTHER FORMS OF ACUTE ISCHEMIC HEART DISEASE (6) Hypertensive cardiomyopathy Code(s): I11.9 - HYPERTENSIVE HEART DISEASE WITHOUT HEART FAILURE I42.9 - CARDIOMYOPATHY, UNSPECIFIED Qualifiers: Heart failure presence: with heart failure Qualified Code(s): I11.0 - Hypertensive heart disease with heart failure Assessment/Plan 05/01/16 Echo: Mild cLVH, severely decreased LV systolic dysfunction, normal RV size and fxn, mod MR, mild TR. Will optimize heart failure meds and diuresis, plan for R&LHc Wednesday once euvolemic. Plan of care d/w patient. 1. Acute on chronic systolic failure (severe dilated LV cardiomyopathy) with subendocardial ischemia in context of 2. Hypertensive urgency, NSAID use 3. Hyperlipidemia P:1. Troponins have peaked and now downward trending 2. Continue Diovan-HCT 160/25 qd, increase carvedilol 12.5 bid qd, Aldactone 25 qd with uptitration as tolerated, ASA 81 qd, Lipitor 20 qd, add Zetia 10 qd 3. Await transfer for [facility] pending insurance approval
[2016-05-04] MEDS: ENOXAPARIN NA (PORCINE) 40 MG/0.4 ML DISP.SYRIN SQ SCH (09:42)
[2016-05-04] MEDS: BACLOFEN 10 MG TABLET (FP) PO SCH ×2 (09:42→21:30)
[2016-05-04] MEDS: ATORVASTATIN CA 20 MG TABLET (FP) PO SCH (09:42)
[2016-05-04] MEDS: HYDROCHLOROTHIAZIDE 25 MG TABLET (FP) PO SCH (09:42)
[2016-05-04] MEDS: VALSARTAN 160 MG TABLET (UD) PO SCH (09:42)
[2016-05-04] MEDS: CHOLECALCIFEROL (VITAMIN D3) 400 UNIT TABLET (FP) PO SCH (09:44)
[2016-05-04] MEDS: SPIRONOLACTONE 25 MG TABLET (FP) PO SCH (09:44)
[2016-05-04] MEDS: ASPIRIN 81 MG CHEWABLE TABLETS PO SCH (09:44)
[2016-05-04] MEDS: CARVEDILOL 12.5 MG TABLET (FP) PO SCH ×2 (11:53→21:30)
[2016-05-04] MEDS: EZETIMIBE 10 MG TABLET (FP) PO SCH (11:53)
--- NOTE | 2016-05-04 16:17 | PN ---
Physical Exam: SUBJECTIVE: Patient seen and examined. She continues to complain on right sided upper arm pain and right upper thigh discomfort. States this pain is intermittent. She denies any shortness of breath. OBJECTIVE: Vital Signs Period Temp Pulse Resp BP Sys/Morse Pulse Ox Last 24 Hr 97.0 F-98.4 F 72-83 14-20 133-146/58-98 95-96 GENERAL: The patient is awake, alert, and fully oriented, in no acute distress. Tearful during exam, due to current family problems. HEAD: Normal with no signs of trauma. EYES: PERRL, extraocular movements intact, sclera anicteric, conjunctiva clear. No ptosis. ENT: Ears normal, nares patent, oropharynx clear without exudates, moist mucous membranes. NECK: Trachea midline, full range of motion, supple. LUNGS: Breath sounds equal, clear to auscultation bilaterally, no wheezes, no crackles, no accessory muscle use. HEART: Regular rate and rhythm ABDOMEN: Soft, nontender, nondistended, normoactive bowel sounds, no guarding, no rebound, no hepatosplenomegaly, no masses. EXTREMITIES: 2+ pulses, warm, well-perfused, no edema. NEUROLOGICAL: Normal speech, gait notobserved. PSYCH: Tearful, verbalizing anxiety over being estranged from her daughter and grandson SKIN: Warm, dry, normal turgor, no rashes or lesions noted Active Medications Generic Name Dose Route Start Last Admin Trade Name Freq PRN Reason Stop Dose Admin Acetaminophen/Butalbital/Caffeine 1 tablet 05/02/16 20:32 05/04/16 09:43 Fioricet - PO 1 tablet Q6H PRN Administration HEADACHE Aspirin 81 mg 05/02/16 10:00 05/04/16 09:44 Asa - PO 81 mg DAILY MODE Administration Atorvastatin Calcium 20 mg 05/02/16 10:00 05/04/16 09:42 Lipitor - PO 20 mg DAILY MODE Administration Baclofen 10 mg 05/01/16 22:00 05/04/16 09:42 Lioresal - PO 10 mg BID MODE Administration Carvedilol 12.5 mg 05/04/16 09:38 05/04/16 11:53 Coreg - PO 12.5 mg BID MODE Administration Cephalexin HCl 500 mg 05/02/16 18:00 05/04/16 11:53 Keflex - PO 500 mg Q6HPO MODE Administration Cholecalciferol 1,000 unit 05/02/16 10:00 05/04/16 09:44 Vitamin D3 - PO 1,000 unit DAILY MODE Administration Ezetimibe 10 mg 05/04/16 10:00 05/04/16 11:53 Zetia - PO 10 mg DAILY MODE Administration Enoxaparin Sodium 40 mg 05/02/16 10:00 05/04/16 09:42 Lovenox - SQ 40 mg DAILY MODE Administration Hydrochlorothiazide 25 mg 05/02/16 10:00 05/04/16 09:42 Hctz - PO 25 mg DAILY MODE Administration Ondansetron HCl 4 mg 05/01/16 11:51 Zofran Injection IVPB Q6H PRN NAUSEA Spironolactone 25 mg 05/01/16 15:30 05/04/16 09:44 Aldactone - PO 25 mg DAILY MODE Administration Valsartan 160 mg 05/02/16 10:00 05/04/16 09:42 Diovan - PO 160 mg DAILY MODE Administration ASSESSMENT/PLAN: Patient is a 50 year old female with a significant past medical history of hypertension, hyperlipidemia, CVA x 2 with mild left sided weakness and chronic lower back pain. She presented to the to [facility] for a routine stress test. During the exam, she became very dizzy, developed chest pain and chest tightness. Further she was found hypertensive (BP 200/100). She was transferred to the ED for further evaluation of her emergent condition. She is pending transfer to a cardac clinical laboratory technician at [facility], likely tomorrow. Cardiology: Chest Pain - acute Assessment/Plan: Troponins peaked at 0.44, trended down to 0.21 Currently on Diovan 160mg, Aldactone 25mg, HCTZ 25mg daily and coreq 12.5mg BID On ASA 81mg Echo: LV systolic function, severely reduced, mid anterospetal wall severe hypokinesis, apical anterior wall severe hypok., There is apical severe hyperk. , mild concentric left vent hypertrophy, there is moderate mitral reg Plan is to transfer to cardiac cath tomorrow - [facility] (pending insurance clearance) Hypertensive urgency Assessment/Plan: BP elevated on admission, now overall improving continue monitor and titrate meds as needed Hyperlipidemia - chronic Assessment/Plan: triglycerides 256, cholestero 271, LDL 186 On Lipitor 20mg : Urinary Tract Infection - prophylactically treated, Urine cultures negative Assessment/Plan: d/c Keflex F.E.N. Fluids: tolerating PO Electrolytes: monitor BMP Nutrition: low sodium diet Prophylaxis GI: Protonix PO DVT: On Lovenox 40mg, ambulatory Disposition: Pending insurance clearance for cardiac cath @ [facility]. Full Code. Visit type - Emergency Visit Emergency Visit: Yes ED Registration Date: 05/01/16 Care time: The patient presented to the Emergency Department on the above date and was hospitalized for further evaluation of their emergent condition. - New Patient This patient is new to me today: Yes Date on this admission: 05/04/16 - Critical Care Critical Care patient: No - Discharge Referral Referred to [facility] No
[2016-05-04] MEDS ORDERED: POLYETHYLENE GLYCOL 3350 119 GM BTL PO ONE (17:36)
[2016-05-04] MEDS ORDERED: DOCUSATE SODIUM 100 MG CAPSULE (FP) PO PRN (17:36)
[2016-05-05 07:31] LABS: BASOPHIL 1.1 % (0-2.0); EOSINOPHIL 2.7 % (0-4.5); MCHC 32.3 g/dl (32.0-36.0); MEAN CELL VOLUME 77.3 fl (80-96); MEAN PLT VOLUME 7.6 fl (7.5-11.1); NEUTROPHILS 44.2 % (42.8-82.8); PLATELET COUNT 274 K/MM3 (134-434); RDW 15.3 % (11.6-15.6); WHITE BLOOD COUNT 6.8 K/mm3 (4.0-10.0)
[2016-05-05 08:25] LABS: ALBUMIN 3.9 g/dl (3.4-5.0); BILIRUBIN,TOTAL 0.2 mg/dL (0.2-1.0); CALCIUM 9.7 mg/dL (8.5-10.1); MAGNESIUM 2.4 mg/dL (1.8-2.4); TOT PROT 7.6 g/dl (6.4-8.2)
[2016-05-05 08:38] LABS: CREATININE 1.3 mg/dL (0.55-1.02)
[2016-05-05] MEDS ORDERED: SODIUM CHLORIDE 500 ML IV STA (08:45)
--- NOTE | 2016-05-05 09:14 | PN ---
Progress Note, Physician Chief Complaint: Events noted Denies chest pain, SOB or palpitations History of Present Illness: Patient was seen and examined. Awake and alert. Chart was reviewed member services coordinator arranging insurance pre-authorization for cardiac catheterization/coronary angiography tomorrow - Current Medication List Current Medications: Active Medications Acetaminophen/Butalbital/Caffeine (Fioricet -) 1 tablet PO Q6H PRN PRN Reason: HEADACHE Last Admin: 05/04/16 23:06 Dose: 1 tablet Aspirin (Asa -) 81 mg PO DAILY [facility] Last Admin: 05/04/16 09:44 Dose: 81 mg Atorvastatin Calcium (Lipitor -) 20 mg PO DAILY [facility] Last Admin: 05/04/16 09:42 Dose: 20 mg Baclofen (Lioresal -) 10 mg PO BID [facility] Last Admin: 05/04/16 21:30 Dose: 10 mg Carvedilol (Coreg -) 12.5 mg PO BID [facility] Last Admin: 05/04/16 21:30 Dose: 12.5 mg Cholecalciferol (Vitamin D3 -) 1,000 unit PO DAILY [facility] Docusate Sodium (Colace -) 100 mg PO Q8H PRN PRN Reason: CONSTIPATION Ezetimibe (Zetia -) 10 mg PO DAILY [facility] Last Admin: 05/04/16 11:53 Dose: 10 mg Heparin Sodium (Porcine) (Heparin -) 5,000 unit SQ BID [facility] Sodium Chloride (Normal Saline -) 500 mls @ 500 mls/hr IV ASDIR STA Stop: 05/05/16 09:44 Ondansetron HCl (Zofran Injection) 4 mg IVPB Q6H PRN PRN Reason: NAUSEA Spironolactone (Aldactone -) 25 mg PO DAILY [facility] Last Admin: 05/04/16 09:44 Dose: 25 mg Valsartan (Diovan -) 160 mg PO DAILY [facility] Last Admin: 05/04/16 09:42 Dose: 160 mg - Objective Vital Signs: Vital Signs Temperature 98.2 F 05/05/16 02:00 Pulse Rate 65 05/05/16 06:00 Respiratory Rate 20 05/05/16 06:00 Blood Pressure 137/80 05/05/16 06:00 O2 Sat by Pulse Oximetry (%) 95 05/04/16 21:00 Neck: Yes: Supple Cardiovascular: Yes: Regular Rate and Rhythm, S1, S2 Respiratory: Yes: CTA Bilaterally Gastrointestinal: Yes: Normal Bowel Sounds, Soft. No: Tenderness Edema: No Additional Findings/Remarks: - Review of Systems Constitutional: no symptoms reported Respiratory: denies: Cough, SOB, denies: Sputum Production Cardiovascular: as noted above Gastrointestinal: denies Nausea, Vomiting, Diarrhea, Constipation or Abdominal Pain Genitourinary: no symptoms reported Musculoskeletal: no symptoms reported Labs: CBC, BMP 05/05/16 05:35 05/05/16 05:35 Problem List - Problems (1) Hyperlipidemia Code(s): E78.5 - HYPERLIPIDEMIA, UNSPECIFIED Qualifiers: Hyperlipidemia type: pure hypercholesterolemia Qualified Code(s): E78.0 - Pure hypercholesterolemia (2) Hypertensive cardiomyopathy Code(s): I11.9 - HYPERTENSIVE HEART DISEASE WITHOUT HEART FAILURE I42.9 - CARDIOMYOPATHY, UNSPECIFIED Qualifiers: Heart failure presence: with heart failure Qualified Code(s): I11.0 - Hypertensive heart disease with heart failure (3) Acute on chronic diastolic heart failure Code(s): I50.33 - ACUTE ON CHRONIC DIASTOLIC (CONGESTIVE) HEART FAILURE (4) CVA (cerebral vascular accident) Code(s): I63.9 - CEREBRAL INFARCTION, UNSPECIFIED Assessment/Plan 1. Acute on chronic diastolic failure with subendocardial ischemia and dilated cardiomyopathy (severe LV systolic dysfunction) 2. Hypertension 3. Hyperlipidemia PLAN: 1. Trend troponins 2. Continue Diovan 160 mg QD, Carvedilol 6.25 mg BID with uptitration as tolerated. Discontinue HCTZ. Continue ASA 81 mg QD. 4. Cardiac catheterization/coronary angiography Wed at [facility] Further plans are to follow Dwight Meyer MD
[2016-05-05] MEDS: ACETAMINOPHEN/CAFFEINE/BUTALBITAL 1 TAB PO PRN ×2 (09:25→22:12)
[2016-05-05] MEDS: ASPIRIN 81 MG CHEWABLE TABLETS PO SCH (09:38)
[2016-05-05] MEDS: SPIRONOLACTONE 25 MG TABLET (FP) PO SCH (09:38)
[2016-05-05] MEDS: ATORVASTATIN CA 20 MG TABLET (FP) PO SCH (09:39)
[2016-05-05] MEDS: HEPARIN NA (PORCINE) 5,000 UNITS/ML 1ML VIAL SQ SCH ×2 (09:39→22:09)
[2016-05-05] MEDS: CARVEDILOL 12.5 MG TABLET (FP) PO SCH (09:39)
[2016-05-05] MEDS: VALSARTAN 160 MG TABLET (UD) PO SCH (09:39)
[2016-05-05] MEDS: EZETIMIBE 10 MG TABLET (FP) PO SCH (09:39)
[2016-05-05] MEDS: BACLOFEN 10 MG TABLET (FP) PO SCH ×2 (09:39→22:09)
[2016-05-05] MEDS ORDERED: SPIRONOLACTONE 25 MG TABLET (FP) PO SCH ×2 (09:48→11:50)
--- NOTE | 2016-05-05 09:52 | PN ---
Physical Exam: SUBJECTIVE: Patient seen and examined. She continues to state she has intermittent right shoulder pain. Denies shortness of breath. OBJECTIVE: GENERAL: The patient is awake, alert, and fully oriented, in no acute distress. HEAD: Normal with no signs of trauma. EYES: PERRL, extraocular movements intact, sclera anicteric, conjunctiva clear. No ptosis. ENT: Ears normal, nares patent, oropharynx clear without exudates, moist mucous membranes. NECK: Trachea midline, full range of motion, supple. LUNGS: Breath sounds equal, clear to auscultation bilaterally, no wheezes, no crackles, no accessory muscle use. HEART: Regular rate and rhythm ABDOMEN: Soft, nontender, nondistended, normoactive bowel sounds, no guarding, no rebound, no hepatosplenomegaly, no masses. EXTREMITIES: 2+ pulses, warm, well-perfused, no edema. NEUROLOGICAL: Normal speech, gait not observed. PSYCH: at baseline, alert and oriented. SKIN: Warm, dry, normal turgor, no rashes or lesions noted Vital Signs Period Temp Pulse Resp BP Sys/Morse Pulse Ox Last 24 Hr 96.8 F-98.4 F 65-88 18-20 126-149/80-96 95 Laboratory Results - last 24 hr 05/05/16 05/05/16 05:35 05:35 WBC 6.8 RBC 5.72 H Hgb 14.3 Hct 44.2 MCV 77.3 L MCHC 32.3 RDW 15.3 Plt Count 274 MPV 7.6 Neutrophils % 44.2 Lymphocytes % 42.4 H Monocytes % 9.6 Eosinophils % 2.7 Basophils % 1.1 Sodium 140 Potassium 4.5 D Chloride 100 Carbon Dioxide 29 Anion Gap 11 BUN 41 H D Creatinine 1.3 H Creat Clearance w eGFR 43.01 Random Glucose 109 H Calcium 9.7 Magnesium 2.4 Total Bilirubin 0.2 D AST 28 D ALT 32 D Alkaline Phosphatase 75 Total Protein 7.6 Albumin 3.9 Active Medications Generic Name Dose Route Start Last Admin Trade Name Freq PRN Reason Stop Dose Admin Acetaminophen/Butalbital/Caffeine 1 tablet 05/02/16 20:32 05/04/16 23:06 Fioricet - PO 1 tablet Q6H PRN Administration HEADACHE Aspirin 81 mg 05/02/16 10:00 05/04/16 09:44 Asa - PO 81 mg DAILY MODE Administration Atorvastatin Calcium 20 mg 05/02/16 10:00 05/04/16 09:42 Lipitor - PO 20 mg DAILY MODE Administration Baclofen 10 mg 05/01/16 22:00 05/04/16 21:30 Lioresal - PO 10 mg BID MODE Administration Carvedilol 12.5 mg 05/04/16 09:38 05/04/16 21:30 Coreg - PO 12.5 mg BID MODE Administration Cholecalciferol 1,000 unit 05/05/16 10:00 Vitamin D3 - PO DAILY MODE Docusate Sodium 100 mg 05/04/16 17:36 Colace - PO Q8H PRN CONSTIPATION Ezetimibe 10 mg 05/04/16 10:00 05/04/16 11:53 Zetia - PO 10 mg DAILY MODE Administration Heparin Sodium (Porcine) 5,000 unit 05/05/16 10:00 Heparin - SQ BID MODE Ondansetron HCl 4 mg 05/01/16 11:51 Zofran Injection IVPB Q6H PRN NAUSEA Spironolactone 50 mg 05/05/16 09:48 Aldactone - PO DAILY MODE Valsartan 160 mg 05/02/16 10:00 05/04/16 09:42 Diovan - PO 160 mg DAILY MODE Administration ASSESSMENT/PLAN: Patient is a 50 year old female with a significant past medical history of hypertension, hyperlipidemia, CVA x 2 with mild left sided weakness and chronic lower back pain. She presented to the to [facility] for a routine stress test. During the exam, she became very dizzy, developed chest pain and chest tightness. Further she was found hypertensive (BP 200/100). She was transferred to the ED for further evaluation of her emergent condition. She is pending transfer to a cardac medical lab director at [facility], likely today pending insurance clearance. Cardiology: Chest Pain Assessment/Plan: Troponins peaked at 0.44, trended down to 0.21 Currently on Diovan 160mg, Aldactone 25mg, HCTZ 25mg daily and coreq 12.5mg BID HCTZ stopped today secondary to NINFA On ASA 81mg Echo: LV systolic function, severely reduced, mid anterospetal wall severe hypokinesis, apical anterior wall severe hypok., There is apical severe hyperk. , mild concentric left vent hypertrophy, there is moderate mitral reg Plan is to transfer to cardiac cath today - [facility] (pending insurance clearance) Hypertensive urgency Assessment/Plan: BP elevated on admission, now overall improving continue monitor and titrate meds as needed Hyperlipidemia - chronic Assessment/Plan: triglycerides 256, cholesterol 271, LDL 186 On Lipitor 20mg : Acute Kidney Injury Assessment/Plan: Unknown baseline, BUN/Creatinine continues to rise HCTZ d/harrison, will give 500cc bolus for dehydration F.E.N. Fluids: tolerating PO Electrolytes: monitor BMP Nutrition: low sodium diet Prophylaxis GI: Protonix PO DVT: Lovenox stopped secondary to NINFA, started on heparin Disposition: Pending insurance clearance for cardiac cath @ [facility]. Full Code. Visit type - Emergency Visit Emergency Visit: Yes ED Registration Date: 05/01/16 Care time: The patient presented to the Emergency Department on the above date and was hospitalized for further evaluation of their emergent condition. - New Patient This patient is new to me today: No - Critical Care Critical Care patient: No - Discharge Referral Referred to [facility] No
[2016-05-05] MEDS ORDERED: CHOLECALCIFEROL (VITAMIN D3) 1,000 UNIT TABLET (FP) PO SCH (10:00)
[2016-05-05] MEDS ORDERED: CARVEDILOL 25 MG TABLET (FP) PO SCH (22:00)
[2016-05-06 04:43] VITALS: TEMP 97
[2016-05-06 05:43] VITALS: BP 145/83; PULSE 68
[2016-05-06 07:20] LABS: BASOPHIL 1.2 % (0-2.0); EOSINOPHIL 2.3 % (0-4.5); MCH 24.8 pg (25.7-33.7); MCHC 32.3 g/dl (32.0-36.0); MEAN CELL VOLUME 76.9 fl (80-96); MEAN PLT VOLUME 7.6 fl (7.5-11.1); PLATELET COUNT 263 K/MM3 (134-434); RDW 15.3 % (11.6-15.6); WHITE BLOOD COUNT 6.8 K/mm3 (4.0-10.0)
[2016-05-06 07:45] LABS: ALBUMIN 3.8 g/dl (3.4-5.0); CALCIUM 9.7 mg/dL (8.5-10.1)
[2016-05-06 07:47] LABS: BILIRUBIN,TOTAL 0.3 mg/dL (0.2-1.0); TOT PROT 7.3 g/dl (6.4-8.2)
--- NOTE | 2016-05-09 20:33 | DS ---
Physical Exam: SUBJECTIVE: Patient not seen as she was transferred to cardiac cardiac cath rn before I was able to examine her. OBJECTIVE: PHYSICAL EXAM - unable to perform as pt was transferred. Patient not seen. LABS HOSPITAL COURSE: Date of Admission:05/01/16 Date of Discharge: 05/06/16 ASSESSMENT/PLAN: Patient is a 50 year old female with a significant past medical history of hypertension, hyperlipidemia, CVA x 2 with mild left sided weakness and chronic lower back pain. She presented to the to [facility] for a routine stress test. During the exam, she became very dizzy, developed chest pain and chest tightness. Further she was found hypertensive (BP 200/100). She was transferred to the ED for further evaluation of her emergent condition. She has been transferred to [facility] for cardiac cath. Cardiology: Chest Pain Assessment/Plan: Troponins peaked at 0.44, trended down to 0.21 Currently on Diovan 160mg, Aldactone 25mg, and coreq 12.5mg BID HCTZ stopped today secondary to NINFA On ASA 81mg Echo: LV systolic function, severely reduced, mid anterospetal wall severe hypokinesis, apical anterior wall severe hypok., There is apical severe hyperk. , mild concentric left vent hypertrophy, there is moderate mitral reg Plan is to transfer to cardiac cath today - [facility] (pending insurance clearance) Hypertensive urgency Assessment/Plan: BP elevated on admission, now overall improving continue monitor and titrate meds as needed Hyperlipidemia - chronic Assessment/Plan: triglycerides 256, cholesterol 271, LDL 186 On Lipitor 20mg : Acute Kidney Injury - resolved Assessment/Plan: HCTZ d/harrison, and given IVF fluid bolus Disposition: Patient transferred to cardiac cardiac cath rn at [facility] today. The above is based on my previous documentation as well as most recent labs of 2016. Minutes to complete discharge: 35 Discharge Summary Reason For Visit: CHEST PAIN Condition: Stable - Instructions Referrals: Jarad Heard MD [Primary Care Provider] - Disposition: TRANSFER ACUTE CARE/OTHER HOSP - Home Medications Comprehensive Discharge Medication List: Ambulatory Orders Baclofen 10 mg PO BID 05/01/16 Cholecalciferol (Vitamin D3) [Vitamin D3 -] 1,000 unit PO DAILY 05/01/16 Lisinopril [Zestril] 30 mg PO DAILY 05/01/16 Meloxicam [Mobic] 15 mg PO DAILY 05/01/16 Naproxen [Naprosyn -] 500 mg PO BID 05/01/16 Simvastatin 40 mg PO DAILY 05/01/16 This patient is new to me today: No Emergency Visit: Yes ED Registration Date: 05/01/16 Care time: The patient presented to the Emergency Department on the above date and was hospitalized for further evaluation of their emergent condition. Critical Care patient: No - Discharge Referral Referred to [facility] Med [facility].: No
--- NOTE | 2016-05-12 16:29 | PN ---
Progress Note (short form) - Note Progress Note: 05/06/2016 Patient underwent R&LHc demonstrating significant 3 vessel CAD ( ostial 100% LAD, prox 70% D1, 90% prox LCx and 90% prox RCA, 80% distal RCA with moderate decreased LV fxn EF 40% and mild pulm HTN, transferred to [facility] and underwent CABGx4 (BLOCK->LAD, SVG->D/OM, SVG PDA) LV noted to be very thick, LVEF 40%. Problem List - Problems (1) Chest pain Code(s): R07.9 - CHEST PAIN, UNSPECIFIED Qualifiers: Chest pain type: unspecified Qualified Code(s): R07.9 - Chest pain, unspecified (2) Hyperlipidemia Code(s): E78.5 - HYPERLIPIDEMIA, UNSPECIFIED Qualifiers: Hyperlipidemia type: pure hypercholesterolemia Qualified Code(s): E78.0 - Pure hypercholesterolemia (3) Hypertensive urgency Code(s): I10 - ESSENTIAL (PRIMARY) HYPERTENSION (4) Acute on chronic diastolic heart failure Code(s): I50.33 - ACUTE ON CHRONIC DIASTOLIC (CONGESTIVE) HEART FAILURE (5) Subendocardial ischemia Code(s): I24.8 - OTHER FORMS OF ACUTE ISCHEMIC HEART DISEASE (6) Hypertensive cardiomyopathy Code(s): I11.9 - HYPERTENSIVE HEART DISEASE WITHOUT HEART FAILURE I42.9 - CARDIOMYOPATHY, UNSPECIFIED Qualifiers: Heart failure presence: with heart failure Qualified Code(s): I11.0 - Hypertensive heart disease with heart failure
== END 2016-05-06 08:15 | disposition short-term general hospital (02) | DRG 205 ==
LOC: JER 10:08 → JERBED 11:57 → J4W 13:55
PROVIDERS: ADMIT Internal Medicine; ATTEND Nurse Practitioner Family
DX: I42.8 Other cardiomyopathies (principal); E78.5 Hyperlipidemia, unspecified; I69.352 Hemiplegia and hemiparesis following cerebral infarction affecting left dominant side; M54.5 Low back pain; M25.562 Pain in left knee; I16.0 Hypertensive urgency; I11.0 Hypertensive heart disease with heart failure; I50.33 Acute on chronic diastolic (congestive) heart failure; I24.8 Other forms of acute ischemic heart disease; N39.0 Urinary tract infection, site not specified; N17.9 Acute kidney failure, unspecified
CPT/HCPCS: 36415; 71010-TC; 80048; 80053; 80061; 81003; 81015; 82550; 83721; 83735; 83880; 84443; 84484; 85025; 87086; 93005; 93010; 93306-TC; 99285-25; J0475; J1644

== ENCOUNTER 2017-08-06 15:00 | Emergency (ER) | payer OTHER ==
--- NOTE | 2017-08-06 15:09 | PDOC ---
Rapid Medical Evaluation Time Seen by Provider: 08/06/17 15:07 Medical Evaluation: Allergies Allergy/AdvReac Type Severity Reaction Status Date / Time No Known Allergies Allergy Verified 08/06/17 15:03 08/06/17 15:07 I have performed a brief in-person evaluation of this patient. The patient presents with a chief complaint of: cp w/ sob and dizziness today. H /o DM, HTN, HLD, CAD, CABG (x4), CVA x 2 w/ some residual weakness on L side Cards: Dr Juarez PMD:Jesika Pertinent physical exam findings:Stable w/ clear chest/lungs I have ordered the following:ekg, cxr, labs The patient will proceed to the ED for further evaluation 08/06/17 15:20 Discharge Disposition - Diagnosis Chest pain Qualifiers: Chest pain type: unspecified Qualified Code(s): R07.9 - Chest pain, unspecified - Referrals - Patient Instructions - Post Discharge Activity
[2017-08-06 15:20] VITALS: TEMP 98.6; BMI 43.9
--- NOTE | 2017-08-06 15:23 | PDOC ---
History of Present Illness - General Chief Complaint: Chest Pain Stated Complaint: ABNORMAL EKG Time Seen by Provider: 08/06/17 15:07 - History of Present Illness Initial Comments: 08/06/17 16:18 The patient is a 51 year old female with a history of HTN, HLD, DM, CAD, TX s/p quadrupal bipass who presents for evaluation of chest pain with SOB. The patient reports a 2-3 day history of worsening left sided chest pain with dyspnea on exertion. She presented to her primary care provider today who noted t wave inversions on the anterior leads prompting the patient's presentation to the ED for further evaluation. The patient currently reports generalized fatigue, but is denying SOB or chest pain currently. She otherwise denies fevers, chills, cough, nausea, vomiting, or changes with urination or bowel movements. Past History - Past Medical History Allergies/Adverse Reactions: Allergies Allergy/AdvReac Type Severity Reaction Status Date / Time pt does not know which med Allergy Uncoded 08/06/17 15:19 she is a Home Medications: Ambulatory Orders Aspirin [ASA -] 81 mg PO DAILY 08/06/17 Carvedilol 25 mg PO BID 08/06/17 Cholecalciferol (Vitamin D3) [Vitamin D3] 5,000 unit PO DAILY 08/06/17 Hydralazine HCl 100 mg PO BID 08/06/17 Metformin HCl 500 mg PO DAILY 08/06/17 Omeprazole 40 mg PO DAILY 08/06/17 Pravastatin Sodium 20 mg PO DAILY 08/06/17 Spironolactone 50 mg PO DAILY 08/06/17 Valsartan 160 mg PO DAILY 08/06/17 Cardiac Disorders: Yes (cardiomeg, quadruple bypass,CAD) CVA: Yes COPD: No Diabetes: Yes HTN: Yes Hypercholesterolemia: Yes - Surgical History Cardiac Surgery: Yes (open heart 2015) - Immunization History Immunization Up to Date: Yes - Suicide/Smoking/Psychosocial Hx Smoking History: Never smoked Hx Alcohol Use: No Drug/Substance Use Hx: No Substance Use Type: None Review of Systems - Review of Systems Comments:: 08/06/17 16:22 Constitutional: Fatigue. No fevers, chills, malaise HEENT: No Rhinorrhea, nasal congestion, visual changes Cardiovascular: Chest pain. No syncope, palpitations, lightheadedness Respiratory: SOB. No Cough, Hemoptysis, Gastrointestinal: No Abdominal pain, Nausea, Vomiting, Constipation, Diarrhea, Melena Genitourinary: No Dysuria, Frequency, Urgency, Hesitancy, Hematuria, Flank pain Musculoskeletal: No Myalgia, arthralgia Skin: No rashes, itching, bruising, pallor Neurologic: No Headache, Dizziness, Numbness, Weakness, or Tingling Psychiatric: No Hallucinations. No SI or HI *Physical Exam - Vital Signs Last Vital Signs Temp Pulse Resp BP Pulse Ox 98.6 F 84 18 125/73 99 08/06/17 15:03 08/06/17 15:03 08/06/17 15:03 08/06/17 15:03 08/06/17 15:03 - Physical Exam Comments: 08/06/17 16:23 General Appearance: Nourished. No Apparent Distress HEENT: EOMI, FUENTES. No Pharyngeal Erythema, Tonsillar Exudate, Tonsillar Erythema Neck: No Cervical Lymphadenopathy Respiratory/Chest: Lungs Clear, Normal Breath Sounds. No Crackles, Rales, Rhonchi, Wheezing Cardiovascular: Regular Rhythm, Regular Rate. No Murmur, Gallops, Rubs Gastrointestinal/Abdominal: Normal Bowel Sounds, Soft. No Guarding, Rebound, Tenderness Musculoskeletal: No CVA Tenderness Extremity: Normal Capillary Refill Integumentary: Normal Color, Dry, Warm Neurologic: Fully Oriented, Alert, Normal Mood/Affect, Normal Response, Heart Score/ECG Review - History History: Moderately suspicious - Electrocardiogram EKG: Non specific repolarization disturbance - Age Age: 45-65 - Risk Factors Risk Factors Heart Score: Yes Hx Hypercholesterolemia, Yes Hx Hypertension, Yes Hx Diabetes, Yes Hx Obesity Based on the list above the patient has:: >/=3 risk factors or Hx atherosclerotic disease - Troponin Troponin: </= normal limit - Score Heart Score - Total: 5 #1 ECG reviewed & interpreted by me at: 16:24 (T wave inversions noted in leads V1- V2) General ECG Interpretation: Sinus Rhythm, Normal Rate, Normal Intervals, No acute ischemic changes ED Treatment Course - LABORATORY CBC & Chemistry Diagram: 08/06/17 16:00 08/06/17 18:55 Medical Decision Making - Medical Decision Making 08/06/17 16:24 The patient is a 51 year old female with a history of HTN, HLD, DM, CAD, TX s/p quadrupal bipass who presents for evaluation of chest pain with SOB. Differential includes but is not limited to: ACS, Angina, Infectious, Metabolic Derangement. Given the patient's cardiac history and chest pain, we will obtain a cbc, cmp, troponin, bnp, ekg, chest plain film to evaluate further for possible etiologies. She will likely be a tele obs admission given her significant cardiac risk factors and presenting symptoms. We will continue to monitor and reassess while here in the ED. 08/06/17 22:09 CBC, cmp, troponin, bnp are unremarkable. Chest plain film is unremarkable as read by our radiologist. Given the patient's significant risk factors and cardiac history as well as presenting symptoms of chest pain at rest as well as with exertion associated with dyspnea, we believe she requires admission for further monitoring. We discussed the case with Dr. Moreno with cardiology who agrees with admission for further monitoring. We discussed the plan with the patient who voiced that she wished to leave AMA. We discussed the risk in detail with the patient including , TX, permanent disability and the patient continued to wish to leave AMA. We discussed the reasoning behind admission and further monitoring and the patient continued to wish to leave AMA. The patient signed the AMA form and stated that she would follow up with her [employer] on an outpatient basis and would return to the ER if her symptoms worsen. *DC/Admit/Observation/Transfer Diagnosis at time of Disposition: Chest pain Qualifiers: Chest pain type: unspecified Qualified Code(s): R07.9 - Chest pain, unspecified - Discharge Dispostion Disposition: AGAINST MEDICAL ADVICE Condition at time of disposition: Stable Decision to Admit order: No - Referrals - Patient Instructions Printed Discharge Instructions: DI for Chest Pain Additional Instructions: Please return to the ER if you experience concerning or worsening symptoms including worsening chest pain, difficulty breathing. It is extremely important that you call to schedule a follow up appointment with your primary care provider and your [employer] within 24 hours to discuss your ER visit and further management of your symptoms. - Post Discharge Activity
[2017-08-06 16:20] LABS: BASO % 1.2 % (0-2.0); EOS % 2.6 % (0-4.5); HEMATOCRIT 38.7 % (32.4-45.2); HEMOGLOBIN 12.4 GM/dL (10.7-15.3); LYMPH % 18.1 % (8-40); MCH 24.9 pg (25.7-33.7); MCHC 31.9 g/dl (32.0-36.0); MEAN CELL VOLUME 78.1 fl (80-96); MEAN PLT VOLUME 7.4 fl (7.5-11.1); MONO % 11.3 % (3.8-10.2); NEUT % 66.8 % (42.8-82.8); PLATELET COUNT 283 K/MM3 (134-434); RBC 4.96 M/mm3 (3.60-5.2); RDW 15.2 % (11.6-15.6); WHITE BLOOD COUNT 6.4 K/mm3 (4.0-10.0)
--- NOTE | 2017-08-06 16:37 | PDOC ---
Attending Attestation - Resident Resident Name: Noe Bolanos - ED Attending Attestation I have performed the following: I have examined & evaluated the patient, The case was reviewed & discussed with the resident, I agree w/resident's findings & plan, Exceptions are as noted - HPI HPI: 08/06/17 16:33 "The patient is a 51 year old female, with a significant past medical history of hypertension, hyperlipidemia, diabetes, CAD Quadruple bypass, cardiomegaly, and CVA(x2 with some residual left sided weakness), who presents to the emergency department with chest pain and shortness of breath for approximately 2 days. Patient reports her chest pain is exacerbated with exertion. She denies any associated diaphoresis, palpitations, or lower extremity edema. She reports seeing her PCP, Dr. López today, where she had an ECG, which showed T wave inversions in the anterior leads and was sent to the ER for further evaluation. She denies any abdominal pain, nausea, or vomiting. She denies any fever, chills, cough, headache, or dizziness. She denies any recent travel or sick contacts. " - Physicial Exam PE: 08/06/17 16:37 "GENERAL: Awake, alert, and fully oriented, in no acute distress. HEAD: No signs of trauma EYES: PERRLA, EOMI, sclera anicteric, conjunctiva clear ENT: Auricles normal inspection, hearing grossly normal, nares patent, oropharynx clear without exudates. Moist mucosa NECK: Nontender, no stepoffs, Normal ROM, supple, no lymphadenopathy, JVD, or masses LUNGS: Breath sounds equal, clear to auscultation bilaterally. No wheezes, and no crackles HEART: Regular rate and rhythm, normal S1 and S2, no murmurs, rubs or gallops ABDOMEN: Soft, nontender, normoactive bowel sounds. No guarding, no rebound. No masses EXTREMITIES: Normal range of motion, no edema. No clubbing or cyanosis. No cords, erythema, or tenderness NEUROLOGICAL: Cranial nerves II through XII intact. 5/5 strength and sensation in all extremities, Normal speech, normal gait, normal cerebellar function SKIN: Warm, Dry, normal turgor, no rashes or lesions noted. " - Medical Decision Making 08/06/17 16:37 51 F with significant cardiac disease presenting with CP. Found to have new TWI on EKG, concerning for ACS. - Labs, trop - Admit tele - Cards consult
[2017-08-06 19:46] LABS: ALBUMIN 3.4 g/dl (3.4-5.0); ANION GAP 7 (8-16); BILIRUBIN,TOTAL 0.2 mg/dL (0.2-1.0); BLOOD UREA NITROGEN 14 mg/dL (7-18); CALCIUM 8.5 mg/dL (8.5-10.1); CHLORIDE 104 mmol/L (98-107); CO2 28 mmol/L (21-32); CREATININE 1.1 mg/dL (0.55-1.02); GLUCOSE,RANDOM 117 mg/dL (74-106); POTASSIUM 4.1 mmol/L (3.5-5.1); SGOT/AST 17 U/L (15-37); SGPT/ALT 20 U/L (12-78); SODIUM 139 mmol/L (136-145); TOT PROT 7.2 g/dl (6.4-8.2)
[2017-08-06 19:48] LABS: ALK PHOS 80 U/L (45-117); N-TERMINAL BNP 198.78 pg/ml (5-125)
[2017-08-06 19:50] VITALS: BP 109/69; PULSE 80
--- NOTE | 2017-08-07 02:06 | PDOC ---
*Physical Exam - Vital Signs Last Vital Signs Temp Pulse Resp BP Pulse Ox 98.6 F 80 18 109/69 95 08/06/17 15:03 08/06/17 19:50 08/06/17 19:50 08/06/17 19:50 08/06/17 19:50 <Hannah Corea - Last Filed: 08/07/17 02:06> - Vital Signs Last Vital Signs Temp Pulse Resp BP Pulse Ox 98.6 F 80 18 109/69 95 08/06/17 15:03 08/06/17 19:50 08/06/17 19:50 08/06/17 19:50 08/06/17 19:50 <Feroz Chambers - Last Filed: 08/07/17 02:06> ED Treatment Course - LABORATORY CBC & Chemistry Diagram: 08/06/17 16:00 08/06/17 18:55 - ADDITIONAL ORDERS Additional order review: Laboratory Results 08/06/17 08/06/17 08/06/17 18:55 17:45 16:00 Sodium 139 Cancelled Cancelled Potassium 4.1 Cancelled Cancelled Chloride 104 Cancelled Cancelled Carbon Dioxide 28 Cancelled Cancelled Anion Gap 7 L Cancelled Cancelled BUN 14 Cancelled Cancelled Creatinine 1.1 H Cancelled Cancelled Creat Clearance w eGFR 51.96 Cancelled Cancelled Random Glucose 117 H Cancelled Cancelled Calcium 8.5 Cancelled Cancelled Total Bilirubin 0.2 D Cancelled Cancelled AST 17 Cancelled Cancelled ALT 20 Cancelled Cancelled Alkaline Phosphatase 80 Cancelled Cancelled Creatine Kinase 141 Cancelled Cancelled Troponin I < 0.02 Cancelled Cancelled B-Natriuretic Peptide 198.78 H Cancelled Total Protein 7.2 Cancelled Cancelled Albumin 3.4 Cancelled Cancelled 08/06/17 16:00 Sodium Potassium Chloride Carbon Dioxide Anion Gap BUN Creatinine Creat Clearance w eGFR Random Glucose Calcium Total Bilirubin AST ALT Alkaline Phosphatase Creatine Kinase Troponin I B-Natriuretic Peptide Cancelled Total Protein Albumin 08/06/17 16:00 RBC 4.96 MCV 78.1 L MCHC 31.9 L RDW 15.2 MPV 7.4 L Neutrophils % 66.8 D Lymphocytes % 18.1 D Monocytes % 11.3 H Eosinophils % 2.6 Basophils % 1.2 <Hannah Corea - Last Filed: 08/07/17 02:06> - LABORATORY CBC & Chemistry Diagram: 08/06/17 16:00 08/06/17 18:55 - ADDITIONAL ORDERS Additional order review: Laboratory Results 08/06/17 08/06/17 08/06/17 18:55 17:45 16:00 Sodium 139 Cancelled Cancelled Potassium 4.1 Cancelled Cancelled Chloride 104 Cancelled Cancelled Carbon Dioxide 28 Cancelled Cancelled Anion Gap 7 L Cancelled Cancelled BUN 14 Cancelled Cancelled Creatinine 1.1 H Cancelled Cancelled Creat Clearance w eGFR 51.96 Cancelled Cancelled Random Glucose 117 H Cancelled Cancelled Calcium 8.5 Cancelled Cancelled Total Bilirubin 0.2 D Cancelled Cancelled AST 17 Cancelled Cancelled ALT 20 Cancelled Cancelled Alkaline Phosphatase 80 Cancelled Cancelled Creatine Kinase 141 Cancelled Cancelled Troponin I < 0.02 Cancelled Cancelled B-Natriuretic Peptide 198.78 H Cancelled Total Protein 7.2 Cancelled Cancelled Albumin 3.4 Cancelled Cancelled 08/06/17 16:00 Sodium Potassium Chloride Carbon Dioxide Anion Gap BUN Creatinine Creat Clearance w eGFR Random Glucose Calcium Total Bilirubin AST ALT Alkaline Phosphatase Creatine Kinase Troponin I B-Natriuretic Peptide Cancelled Total Protein Albumin 08/06/17 16:00 RBC 4.96 MCV 78.1 L MCHC 31.9 L RDW 15.2 MPV 7.4 L Neutrophils % 66.8 D Lymphocytes % 18.1 D Monocytes % 11.3 H Eosinophils % 2.6 Basophils % 1.2 <Feroz Chambers - Last Filed: 08/07/17 02:06> Medical Decision Making - Medical Decision Making Case discussed with Dr. Caro at 20:20. <Feroz Chambers - Last Filed: 08/07/17 02:06> *DC/Admit/Observation/Transfer <Hannah Corea - Last Filed: 08/07/17 02:06> - Attestations Scribe Attestion: Documentation prepared by Feroz Chambers, acting as resident medical officer for Hannah Corea MD. <Feroz Chambers - Last Filed: 08/07/17 02:06> Diagnosis at time of Disposition: Chest pain Qualifiers: Chest pain type: unspecified Qualified Code(s): R07.9 - Chest pain, unspecified - Discharge Dispostion Disposition: AGAINST MEDICAL ADVICE Condition at time of disposition: Stable - Referrals - Patient Instructions Printed Discharge Instructions: DI for Chest Pain Additional Instructions: Please return to the ER if you experience concerning or worsening symptoms including worsening chest pain, difficulty breathing. 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 - Post Discharge Activity
--- NOTE | 2017-08-07 08:54 | EKG ---
Test Reason : Blood Pressure : / mmHG Vent. Rate : 069 BPM Atrial Rate : 069 BPM P-R Int : 158 ms QRS Dur : 084 ms QT Int : 406 ms P-R-T Axes : 044 -24 095 degrees QTc Int : 435 ms NORMAL SINUS RHYTHM LEFT VENTRICULAR HYPERTROPHY WITH REPOLARIZATION ABNORMALITY CANNOT RULE OUT SEPTAL INFARCT (CITED ON OR BEFORE 01-MAY-2016) ABNORMAL ECG WHEN COMPARED WITH ECG OF 02-MAY-2016 19:52, QRS DURATION HAS DECREASED T WAVE INVERSION NOW EVIDENT IN ANTERIOR LEADS QT HAS SHORTENED Confirmed by DONNA LYNN, BENEDICTO ([id number]) on 08/07/2017 8:54:11 AM Referred By: Confirmed By:BENEDICTO THOMPSON MD
== END 2017-08-06 20:50 | disposition left against medical advice (07) ==
LOC: JER 15:00
DX: R07.89 Other chest pain (principal); I25.810 Atherosclerosis of coronary artery bypass graft(s) without angina pectoris; I10 Essential (primary) hypertension; Z95.1 Presence of aortocoronary bypass graft; E78.5 Hyperlipidemia, unspecified; E78.00 Pure hypercholesterolemia, unspecified; E11.9 Type 2 diabetes mellitus without complications; Z79.84 Long term (current) use of oral hypoglycemic drugs; I69.854 Hemiplegia and hemiparesis following other cerebrovascular disease affecting left non-dominant side
CPT/HCPCS: 36415; 71045-TC-FY; 80053; 82550; 83880; 84484; 85025; 93005; 93010; 99284-25

== ENCOUNTER 2018-05-26 15:51 | Emergency (ER) | payer OTHER ==
--- NOTE | 2018-05-26 16:09 | PDOC ---
Rapid Medical Evaluation Time Seen by Provider: 05/26/18 16:08 Medical Evaluation: Allergies Allergy/AdvReac Type Severity Reaction Status Date / Time pt does not know which med Allergy Uncoded 08/06/17 15:19 she is a 05/26/18 16:08 I performed a brief in-person evaluation of this patient. Chief complaint: Left leg pain and swelling, hx CAD s/p CBG x 3 yrs ago [facility]. No CP or SOB. Pertinent physical exam findings: LLE edema + calf tenderness I have ordered the following: CBC, CMP, PT/INR, LLE u/s Patient will proceed to the ED for further evaluation. 05/26/18 16:10 Discharge Disposition - Diagnosis Leg swelling - Referrals - Patient Instructions - Post Discharge Activity
[2018-05-26 16:10] VITALS: BP 115/62; PULSE 60; TEMP 98.1; BMI 42.4
[2018-05-26 17:08] LABS: BASO % 0.7 % (0-2.0); EOS % 1.9 % (0-4.5); HEMOGLOBIN 13.8 GM/dL (10.7-15.3); LYMPH % 33.1 % (8-40); MCH 25.5 pg (25.7-33.7); MCHC 32.9 g/dl (32.0-36.0); MEAN CELL VOLUME 77.8 fl (80-96); MEAN PLT VOLUME 7.6 fl (7.5-11.1); MONO % 7.3 % (3.8-10.2); PLATELET COUNT 291 K/MM3 (134-434); RDW 16.8 % (11.6-15.6); WHITE BLOOD COUNT 7.1 K/mm3 (4.0-10.0)
[2018-05-26 17:26] LABS: INR 0.97 (0.83-1.09); PROTHROMBIN TIME (PATIENT) 11.4 SEC (9.7-13.0)
[2018-05-26 17:37] LABS: ALBUMIN 3.8 g/dl (3.4-5.0); ALK PHOS 86 U/L (45-117); ANION GAP 2 MMOL/L (8-16); BILIRUBIN,TOTAL 0.3 mg/dL (0.2-1); BLOOD UREA NITROGEN 20 mg/dL (7-18); CALCIUM 9.6 mg/dL (8.5-10.1); CHLORIDE 105 mmol/L (98-107); CO2 30 mmol/L (21-32); CREATININE 1.1 mg/dL (0.55-1.3); GLUCOSE,RANDOM 125 mg/dL (74-106); POTASSIUM 4.9 mmol/L (3.5-5.1); SGOT/AST 18 U/L (15-37); SGPT/ALT 21 U/L (13-61); SODIUM 138 mmol/L (136-145); TOT PROT 8.1 g/dl (6.4-8.2)
--- NOTE | 2018-05-26 19:37 | PDOC ---
History of Present Illness - General Chief Complaint: Pain, Acute Stated Complaint: LT LEG PAIN Time Seen by Provider: 05/26/18 16:08 History Source: Patient Exam Limitations: No Limitations Past History - Past Medical History Allergies/Adverse Reactions: Allergies Allergy/AdvReac Type Severity Reaction Status Date / Time pt does not know which med Allergy Uncoded 05/26/18 16:11 she is a Home Medications: Ambulatory Orders Aspirin [ASA -] 81 mg PO DAILY 08/06/17 Carvedilol 25 mg PO BID 08/06/17 Cholecalciferol (Vitamin D3) [Vitamin D3] 5,000 unit PO DAILY 08/06/17 Hydralazine HCl 100 mg PO BID 08/06/17 Omeprazole 40 mg PO DAILY 08/06/17 Pravastatin Sodium 20 mg PO DAILY 08/06/17 Spironolactone 50 mg PO DAILY 08/06/17 Valsartan 160 mg PO DAILY 08/06/17 metFORMIN HCL [Metformin HCl] 500 mg PO DAILY 08/06/17 Cardiac Disorders: Yes (cardiomeg, quadruple bypass,CAD) CVA: Yes COPD: No Diabetes: Yes HTN: Yes Hypercholesterolemia: Yes - Surgical History Cardiac Surgery: Yes (open heart 2015) - Immunization History Immunization Up to Date: Yes - Suicide/Smoking/Psychosocial Hx Smoking History: Never smoked Have you smoked in the past 12 months: No Information on smoking cessation initiated: No Hx Alcohol Use: No Drug/Substance Use Hx: No Substance Use Type: None *Physical Exam - Vital Signs Last Vital Signs Temp Pulse Resp BP Pulse Ox 98.1 F 60 18 115/62 97 05/26/18 16:07 05/26/18 16:07 05/26/18 16:07 05/26/18 16:07 05/26/18 16:07 - Physical Exam General Appearance: No: Apparent Distress Respiratory/Chest: positive: Lungs Clear, Normal Breath Sounds. negative: Respiratory Distress Cardiovascular: positive: Regular Rhythm, Regular Rate, S1, S2. negative: Murmur Gastrointestinal/Abdominal: positive: Normal Bowel Sounds, Soft. negative: Tender, Distended, Guarding, Rebound Extremity: positive: Normal Inspection, Normal Range of Motion. negative: Pedal Edema, Swelling, Calf Tenderness, Erythema Integumentary: positive: Normal Color, Other (2+ PT and DP pulses of LLE) Neurologic: positive: Alert, Normal Mood/Affect Moderate Sedation - Procedure Monitoring Vital Signs: Procedure Monitoring Vital Signs Temperature 98.1 F 05/26/18 16:07 Pulse Rate 60 05/26/18 16:07 Respiratory Rate 18 05/26/18 16:07 Blood Pressure 115/62 05/26/18 16:07 O2 Sat by Pulse Oximetry (%) 97 05/26/18 16:07 ED Treatment Course - LABORATORY CBC & Chemistry Diagram: 05/26/18 16:17 05/26/18 16:17 - ADDITIONAL ORDERS Additional order review: Laboratory Results 05/26/18 05/26/18 16:17 16:17 PT with INR 11.40 INR 0.97 Sodium 138 Potassium 4.9 Chloride 105 Carbon Dioxide 30 Anion Gap 2 L BUN 20 H Creatinine 1.1 Creat Clearance w eGFR 51.76 Random Glucose 125 H Calcium 9.6 Total Bilirubin 0.3 AST 18 ALT 21 Alkaline Phosphatase 86 Total Protein 8.1 Albumin 3.8 05/26/18 16:17 RBC 5.40 H MCV 77.8 L MCHC 32.9 RDW 16.8 H MPV 7.6 Neutrophils % 57.0 Lymphocytes % 33.1 D Monocytes % 7.3 Eosinophils % 1.9 Basophils % 0.7 Medical Decision Making - Medical Decision Making 52 y/o F hx of HTN, CAD s/p CABG presents with L medial calf pain x 3 days. Mentions she was crossing the street and when she stepped forward, she felt a stretch in her left calf. Denies falling or other trauma. Denies fever, sob, cp , abd pain, n/v, numbness/tingling/weakness of extremities. Denies smoking. Doppler of LUE neg for DVT No concern for PAD or thrombophlebitis Possible MSK pain Stable for dc 05/26/18 19:34 *DC/Admit/Observation/Transfer Diagnosis at time of Disposition: Pain of left calf - Discharge Dispostion Disposition: HOME Condition at time of disposition: Stable Decision to Admit order: No - Referrals - Patient Instructions Additional Instructions: Thank you for choosing [facility]. It was a pleasure taking care of you. There was no evidence of clot in your left leg Possibly your pain could be musculoskeletal in nature Follow-up with your doctor in 2-3 days Return to the Emergency Department if your symptoms worsen or persist, you have fever, shortness of breath, chest pain, increased calf swelling, redness or other concerning symptoms. - Post Discharge Activity
--- NOTE | 2018-05-27 11:09 | EKG ---
Test Reason : Blood Pressure : / mmHG Vent. Rate : 060 BPM Atrial Rate : 060 BPM P-R Int : 180 ms QRS Dur : 086 ms QT Int : 440 ms P-R-T Axes : 034 -17 078 degrees QTc Int : 440 ms NORMAL SINUS RHYTHM MINIMAL VOLTAGE CRITERIA FOR LVH, MAY BE NORMAL VARIANT CANNOT RULE OUT ANTERIOR INFARCT , AGE UNDETERMINED ABNORMAL ECG WHEN COMPARED WITH ECG OF 06-AUG-2017 15:17, NO SIGNIFICANT CHANGE WAS FOUND Confirmed by EJROME WILSON MD ([id number]) on 05/27/2018 11:09:25 AM Referred By: Confirmed By:JEROME WILSON MD
== END 2018-05-26 19:56 | disposition home or self-care (01) ==
LOC: JER 15:51
DX: M79.662 Pain in left lower leg (principal); I25.10 Atherosclerotic heart disease of native coronary artery without angina pectoris; I10 Essential (primary) hypertension; Z95.1 Presence of aortocoronary bypass graft; I51.7 Cardiomegaly; E78.00 Pure hypercholesterolemia, unspecified; E11.9 Type 2 diabetes mellitus without complications; Z79.84 Long term (current) use of oral hypoglycemic drugs; Z86.73 Personal history of transient ischemic attack (TIA), and cerebral infarction without residual deficits
CPT/HCPCS: 36415; 80053; 85025; 85610; 93005; 93010; 93971-TC; 99283-25

== ENCOUNTER 2022-11-28 15:05 | Emergency (ER) | payer OTHER ==
[2022-11-28 15:09] VITALS: BMI 42.2
[2022-11-28] MEDS ORDERED: morphine CARPU-JECT 2 MG/1 ML DISP.SYRIN IVPUSH ONE ×2 (17:54→20:21)
[2022-11-28 18:56] LABS: EOS % 3.6 % (0-4.5); HEMATOCRIT 46.4 % (32.4-45.2); LYMPH % 33.9 % (8-40); MCH 26.3 pg (25.7-33.7); MCHC 32.3 g/dl (32.0-36.0); MEAN CELL VOLUME 81.3 fl (80-96); MEAN PLT VOLUME 6.7 fl (7.5-11.1); MONO % 6.2 % (3.8-10.2); NEUT % 55.3 % (42.8-82.8); PLATELET COUNT 348 10^3/uL (134-434); RBC 5.71 M/mm3 (3.60-5.2); WHITE BLOOD COUNT 7.2 K/mm3 (4.0-10.0)
[2022-11-28 19:15] LABS: POTASSIUM 4.7 mmol/L (3.5-5.1)
[2022-11-28 19:18] LABS: CALCIUM 9.3 mg/dL (8.5-10.1)
[2022-11-28 19:19] LABS: BLOOD UREA NITROGEN 7.6 mg/dL (7-18)
[2022-11-28 19:22] LABS: CREATININE 0.9 mg/dL (0.55-1.3)
[2022-11-28 19:24] LABS: BILIRUBIN,TOTAL 0.3 mg/dL (0.2-1)
[2022-11-28 21:34] VITALS: BP 179/103; PULSE 57; RESP 18; TEMP 98.8
== END 2022-11-28 22:53 | disposition home or self-care (01) ==
LOC: JER 15:05 → JERFT 15:05 → JER 22:53
PROC: 3E033GC Introduction of Other Therapeutic Substance into Peripheral Vein, Percutaneous Approach (ICD-10-PCS; principal; 2022-11-28)
DX: M54.42 Lumbago with sciatica, left side (principal); M25.552 Pain in left hip; I10 Essential (primary) hypertension
CPT/HCPCS: 36415; 72100-TC-FY; 73502-TC-LT-FY; 73562-TC-LT-FY; 80053; 85025; 99284-25